=== PATIENT | female | born 1935 | race Caucasian/White ===

== ENCOUNTER 2017-05-28 16:30 | Outpatient (CLI) | payer MEDICARE, BC | END 2017-05-28 16:31 | disposition home or self-care (01) | LOC: BICRAD 16:30 | PROVIDERS: ATTEND Internal Medicine Cardiovascular Disease | DX: R06.02 Shortness of breath (principal); Z95.0 Presence of cardiac pacemaker | CPT/HCPCS: 71046 ==

== ENCOUNTER 2017-12-25 09:22 | Outpatient (CLI) | payer MEDICARE, BC ==
--- NOTE | 2017-12-25 10:28 | RAD ---
TWO VIEWS CHEST: COMPARISON: 05/28/2017. HISTORY: Dyspnea. FINDINGS: Stable left-sided transvenous pacemaker. Normal cardiac silhouette. The pulmonary vessels and hilum are normal. Costophrenic angles are clear. Hyperinflation, without consolidation or mass. No pneu mothorax or osseous abnormalities. IMPRESSION: No acute cardiopulmonary process. POS: [facility]
== END 2017-12-25 09:23 | disposition home or self-care (01) ==
LOC: RAD 09:22
PROVIDERS: ATTEND Internal Medicine Critical Care Medicine
DX: R06.00 Dyspnea, unspecified (principal); I80.10 Phlebitis and thrombophlebitis of unspecified femoral vein; Z79.01 Long term (current) use of anticoagulants
CPT/HCPCS: 71046

== ENCOUNTER 2018-02-19 12:52 | Outpatient (CLI) | payer MEDICARE, BC ==
--- NOTE | 2018-02-19 14:27 | RAD ---
RIGHT KNEE FOUR VIEWS: History: 83-year-old female with history of arthropathy, patellar and medial pain for months. FINDINGS: Arthrosis and degenerative changes are noted of the right knee joint with some narrowing of the media l compartment and generalized hypertrophic osteophytosis with minimal bony demineralization. IMPRESSION: Degenerative changes without fracture or dislocation. Minimal bony demineralization. POS: [facility]
== END 2018-02-19 12:53 | disposition home or self-care (01) ==
LOC: BICRAD 12:52
PROVIDERS: ATTEND Anesthesiology Pain Medicine
DX: M12.9 Arthropathy, unspecified (principal); M17.11 Unilateral primary osteoarthritis, right knee

== ENCOUNTER 2018-05-19 11:38 | Emergency (ER) | payer MEDICARE, BC ==
--- NOTE | 2018-05-19 12:14 | RAD ---
FRadiograph chest one view: 05/19/2018 HISTORY: 83-year-old female with cough. COMPARISON: 12/25/2017 FINDINGS: Cardiomegaly. Dual lead left subclavian pacemaker. No pulmonary venous engorgement or pulmonary edema . Lungs are clear. No pneumothorax. No effacement of lateral costophrenic angles. No interval change. IMPRESSION: 1. Cardiomegaly without congestive heart failure. 2. No evidence of pneumonia. 3. Pacemaker
--- NOTE | 2018-05-19 12:19 | CT ---
FCT brain noncontrast: HISTORY: 83-year-old female status post acute head trauma from fall FINDINGS: There is no evidence of acute intra-axial or extra-axial hemorrhage. No mass effect, midline shift, o r extra-axial fluid collection. No evidence of obstructive hydrocephalus. Calvarium is intact. IMPRESSION: No acute intracranial findings.
--- NOTE | 2018-05-19 12:22 | CT ---
FCT cervical spine noncontrast: Date: 05/19/2018 HISTORY: cervical trauma FINDINGS: Alignment is normal. Vertebral body heights are maintained. No prevertebral soft tissue swelling. No perched or jumped facets. No fracture identified. IMPRESSION: No acute fracture or traumatic subluxation
[2018-05-19 12:31] LABS: Hemoglobin 11.3 g/dL (12.0-16.0); Mean Corpuscular HGB CONC 33.3 g/dL (32.0-36.0); Mean Corpuscular Hemoglobin 31.3 pg (27.0-31.0); Mean Corpuscular Volume 94.2 fL (78.0-98.0); Mean Platelet Volume 7.2 fL (7.4-10.4); Platelet Count 345 thou/uL (130-400); RBC Distribution Width 12.3 % (11.5-14.5); Red Blood Cell (RBC) Count 3.61 mill/uL (4.20-5.40); White Blood Cell (WBC) Count 7.2 thou/uL (4.8-10.8)
[2018-05-19 12:51] LABS: ALT (SGPT) 30 U/L (8-55); AST (SGOT) 30 U/L (5-34); Albumin 3.8 g/dL (3.4-4.8); Alkaline Phosphatase 60 U/L (40-150); Anion Gap 13 mmol/L (10-20); BUN (Urea Nitrogen) 22 mg/dL (9.8-20.1); Bilirubin, Total 0.5 mg/dL (0.2-1.2); Calc. Creatinine Clearance 0 mL/min (70-130); Calcium 9.2 mg/dL (7.8-10.44); Carbon Dioxide 27 mmol/L (23-31); Chloride 99 mmol/L (98-107); Estimated GFR-MDRD 31; Globulin 2.8 g/dL (2.4-3.5); Glucose 87 mg/dL (83-110); Potassium 3.7 mmol/L (3.5-5.1); Protein, Total 6.6 g/dL (6.0-8.3); Sodium 135 mmol/L (136-145)
[2018-05-19 13:03] LABS: Band 4 % (5-11); Eosinophils 3 % (0-10); Hypochromia SLIGHT = 6-15 cells (100X) (0-5/hpf); Lymphocytes 12 % (21-51); MDiff Complete? YES; Monocytes 18 % (0-10); Neutrophil 54 % (42-75); Platelet Morphology Comment Appears Adequate; Reactive Lymphocytes 9 % (0-10)
[2018-05-19 13:09] LABS: Bilirubin Negative (Negative); Blood, Urine Negative (Negative); Clarity CLEAR (Clear); Glucose, Urine (Dipstick) Negative (Negative); Leukocyte Trace (Negative); Nitrite Negative (Negative); Protein, Urine (Dipstick) Negative (Neg-Trace); Specific Gravity, Urine 1.015 (1.002-1.036)
[2018-05-19 13:11] LABS: Bacteria/HPF None Seen HPF (None Seen); Hyaline Casts/LPF 0-3 HYALINE CAST LPF (0-3 Hyaline); Pathc Cast-AUWi Flag 0.81 (0-2.49); RBC/HPF 0-3 HPF (0-3)
[2018-05-19] MEDS ORDERED: Bacitracin Zinc 1 Packet ONE (13:20)
== END 2018-05-19 13:30 | disposition home or self-care (01) ==
LOC: ERS 11:38
DX: S51.012A Laceration without foreign body of left elbow, initial encounter (principal); S00.03XA Contusion of scalp, initial encounter; E78.5 Hyperlipidemia, unspecified; I10 Essential (primary) hypertension; I48.91 Unspecified atrial fibrillation; Z79.899 Other long term (current) drug therapy; W22.01XA Walked into wall, initial encounter
CPT/HCPCS: 36415; 70450; 71045; 72125; 80053; 81003; 81015; 85025

== ENCOUNTER 2018-07-19 13:35 | Outpatient (CLI) | payer MEDICARE, BC ==
--- NOTE | 2018-07-19 15:19 | CT ---
CT Lumbar Spine WO Con History: [Lumbar stenosis with neurogenic claudication] Comparison: None. Findings: Moderate levoscoliosis of the lumbar spine. Modic type III endplate change at L3/L4 and L4/ L5. The aortic contour is nonaneurysmal. No retroperitoneal periaortic adenopathy. Nondisplaced sagittall y oriented fracture left lamina of L5. Hypodensity superior pole left kidney incompletely evaluated. Levels are as follows: L1/L2: Advanced degenerative disc space height loss. Moderate facet arthrosis. Broad-based posterior disc osteophyte complex. Moderate bilateral neural foraminal narrowing. Spinal canal measures approximately 8 mm. L2/L3: Severe degenerative disc space height loss. Moderate facet arthropathy. Circumferential disc o steophyte complex. Moderate to severe right and left neural foraminal narrowing. Mild ligamentum flavum hypertrophy. Spinal canal measures approximately 8 mm. L3/L4: Circumferential disc bulge with left-sided disc osteophyte complex. Severe facet arthrosis on the right and moderate on the left. Severe right and moderate left neural foraminal narrowing. Ligamentum flavum hypertrophy. Spinal canal measures approximately 5 mm. L4/L5: Circumferential disc osteophyte complex. Severe bilateral facet arthrosis. Severe left and rig ht neural foraminal narrowing. L5/S1: Mild degenerative posterior disc space height loss. Mild right and moderate to severe left fac et arthropathy. Severe left and moderate right neural foraminal narrowing. Impression: 1. Multilevel moderate to severe degenerative disease as described with levoscoliosis of the lumbar s pine approximately 22 degrees. 2. Stress type fracture of the left lamina of L5, nondisplaced.
== END 2018-07-19 13:36 | disposition home or self-care (01) ==
LOC: BICCT 13:35
PROVIDERS: ATTEND Anesthesiology Pain Medicine
DX: M48.062 Spinal stenosis, lumbar region with neurogenic claudication (principal); M47.816 Spondylosis without myelopathy or radiculopathy, lumbar region; M48.46XA Fatigue fracture of vertebra, lumbar region, initial encounter for fracture; M41.9 Scoliosis, unspecified
CPT/HCPCS: 72131

== ENCOUNTER 2018-09-13 09:25 | Emergency (ER) | payer MEDICARE, BC ==
--- NOTE | 2018-09-13 10:46 | RAD ---
3 views of the left foot: 09/13/2018 COMPARISON: None HISTORY: Injury, laceration, bleeding FINDINGS: There is mild degenerative change at the first metatarsal phalangeal joint. No displaced fr acture or evidence of dislocation is seen. There is focal dorsal soft tissue swelling overlying the forefoot on the lateral examination. There is degenerative change within the mid foot. Calcaneal spur ring noted at the origin of the plantar aponeurosis and insertion of the Achilles tendon. IMPRESSION: Focal dorsal soft tissue swelling with no associated fracture/dislocation or radiopaque f oreign body.
== END 2018-09-13 11:12 | disposition home or self-care (01) ==
LOC: ERS 09:25
DX: S91.302A Unspecified open wound, left foot, initial encounter (principal); I48.91 Unspecified atrial fibrillation; E78.5 Hyperlipidemia, unspecified; I10 Essential (primary) hypertension; I49.9 Cardiac arrhythmia, unspecified; Z79.899 Other long term (current) drug therapy; Z79.01 Long term (current) use of anticoagulants; W26.0XXA Contact with knife, initial encounter

== ENCOUNTER 2018-11-01 09:54 | Outpatient (CLI) | payer MEDICARE, BC ==
--- NOTE | 2018-11-01 10:44 | MMO ---
Bilateral MAMMO Bilat Screen [facility]. CLINICAL HISTORY: Patient is 83 years old and is seen for screening. The patient has the following family history of breast cancer: maternal aunt. The patient has no personal history of cancer. VIEWS: The views performed were: bilateral craniocaudal with tomosynthesis; bilateral mediolateral oblique with tomosynthesis; and left mediolateral oblique. FILMS COMPARED: The present examination has been compared to prior imaging studies performed at [facility] on 07/07/2014, 07/26/2015, 08/17/2016 and 09/12/2017. This study has been interpreted with the assistance of computer-aided detection. MAMMOGRAM FINDINGS: There are scattered fibroglandular densities. There are vascular calcifications seen in both breasts. There are no suspicious masses, suspicious calcifications, or new areas of architectural distortion. IMPRESSION: THERE IS NO MAMMOGRAPHIC EVIDENCE OF MALIGNANCY. A ROUTINE FOLLOW-UP MAMMOGRAM IN 1 YEAR IS RECOMMENDED. THE RESULTS OF THIS EXAM WERE SENT TO THE PATIENT. ACR BI-RADS Category 2 - Benign finding MAMMOGRAPHY NOTE: 1. A negative mammogram report should not delay a biopsy if a dominant of clinically suspicious mass is present. 2. Approximately 10% to 15% of breast cancers are not detected by mammography. 3. Adenosis and dense breasts may obscure an underlying neoplasm. Reported by: PREETI DICKEY MD Electonically Signed: [id number]
== END 2018-11-01 09:55 | disposition home or self-care (01) ==
LOC: BICMAMMO 09:54
PROVIDERS: ATTEND Internal Medicine
DX: Z12.31 Encounter for screening mammogram for malignant neoplasm of breast (principal); Z80.3 Family history of malignant neoplasm of breast
CPT/HCPCS: 77063; 77067

== ENCOUNTER 2018-11-20 20:24 | Emergency (ER) | payer MEDICARE, BC ==
[2018-11-20] MEDS ORDERED: Adacel (T-DAP) 0.5 ML SYRINGE ONE (21:29)
== END 2018-11-20 21:58 | disposition home or self-care (01) ==
LOC: ERS 20:24
DX: S81.812A Laceration without foreign body, left lower leg, initial encounter (principal); L03.116 Cellulitis of left lower limb; E78.5 Hyperlipidemia, unspecified; I10 Essential (primary) hypertension; I48.91 Unspecified atrial fibrillation; W45.8XXA Other foreign body or object entering through skin, initial encounter
CPT/HCPCS: 90471; 90715

== ENCOUNTER 2018-12-15 15:09 | Inpatient (IN) | payer MEDICARE, BC ==
[2018-12-15 15:47] LABS: #Basophils 0.1 thou/uL (0.0-0.2); #Eosinphils 0.1 thou/uL (0.0-0.7); #Lymphocytes 1.3 thou/uL (1.20-3.40); #Monocytes 1.3 thou/uL (0.11-0.59); #Neutrophils 6.3 thou/uL (1.40-6.50); %Basophils 0.7 % (0.0-1.0); %Eosinophils 0.8 % (0.0-10.0); %Lymphocytes 13.9 % (21.0-51.0); %Monocytes 14.5 % (0.0-10.0); %Neutrophils 70.1 % (42.0-75.0); Hemoglobin 10.3 g/dL (12.0-16.0); Mean Corpuscular HGB CONC 33.9 g/dL (32.0-36.0); Mean Corpuscular Hemoglobin 31.8 pg (27.0-31.0); Mean Corpuscular Volume 93.9 fL (78.0-98.0); Mean Platelet Volume 6.9 fL (7.4-10.4); Platelet Count 313 thou/uL (130-400); RBC Distribution Width 12.9 % (11.5-14.5); Red Blood Cell (RBC) Count 3.24 mill/uL (4.20-5.40)
[2018-12-15] MEDS ORDERED: diphenhydrAMINE 50 MG/ML VIAL ONE ×2 (15:52→16:04)
[2018-12-15 15:58] LABS: Bilirubin Negative (Negative); Blood, Urine Negative (Negative); Clarity Clear (Clear); Glucose, Urine (Dipstick) Normal (Negative); Leukocyte Negative Leu/uL (Negative); Nitrite Negative (Negative); Protein, Urine (Dipstick) 10 mg/dL (Neg-Trace)
[2018-12-15] MEDS ORDERED: Famotidine/PF 20 mg/2ml Vial ONE (16:04)
[2018-12-15] MEDS ORDERED: methylPREDNISolone Sod Succ/PF 125 MG/2 ML VIAL ONE (16:04)
[2018-12-15 16:09] LABS: Amphetamine Not Detected (NotDetected); Barbiturates Screen Not Detected (NotDetected); Benzodiazepine Screen Not Detected (NotDetected); Cocaine Metabolite Screen Not Detected (NotDetected); Medtox Control Line Valid? VALID (VALID); Medtox Reader # READER 4; Methadone Not Detected (NotDetected); Methamphetamine Not Detected (NotDetected); Opiate Screen Detected (NotDetected); Oxycodone Screen Not Detected (NotDetected); Phencyclidine (PCP) Not Detected (NotDetected); THC/Cannabinoid Screen Not Detected (NotDetected); Tricyclic Screen Not Detected (NotDetected)
[2018-12-15] MEDS ORDERED: Lorazepam 2 MG/ML VIAL ONE ×2 (16:14→16:31)
[2018-12-15 16:21] LABS: ALT (SGPT) 67 U/L (8-55); AST (SGOT) 54 U/L (5-34); Albumin 3.8 g/dL (3.4-4.8); Alkaline Phosphatase 69 U/L (40-110); Anion Gap 14 mmol/L (10-20); BUN (Urea Nitrogen) 33 mg/dL (9.8-20.1); Bilirubin, Total 0.6 mg/dL (0.2-1.2); Calc. Creatinine Clearance 0 mL/min (70-130); Calcium 9.1 mg/dL (7.8-10.44); Carbon Dioxide 23 mmol/L (23-31); Chloride 102 mmol/L (98-107); Estimated GFR-MDRD 27; Globulin 2.6 g/dL (2.4-3.5); Glucose 105 mg/dL (83-110); Potassium 4.1 mmol/L (3.5-5.1); Protein, Total 6.4 g/dL (6.0-8.3); Sodium 135 mmol/L (136-145)
--- NOTE | 2018-12-15 17:05 | RAD ---
PORTABLE CHEST: HISTORY: Altered mental status. COMPARISON: 05/19/2018 FINDINGS: Heart size is enlarged with a pacemaker. The lungs are clear of infiltrates. No signs of failure. IMPRESSION: Cardiomegaly. Stable chest. POS: [facility]
[2018-12-15] MEDS ORDERED: Haloperidol Lactate 5 MG/ML VIAL ONE ×2 (17:14→17:15)
--- NOTE | 2018-12-15 17:15 | CT ---
CT BRAIN WITHOUT CONTRAST ENHANCEMENT: HISTORY: Altered mental status. COMPARISON: 05/19/2018 FINDINGS: There is mild ventricular and sulcal prominence. There is some motion artifact present. There are no signs of intracranial hemorrhage or extraaxial fluid collections. The mastoid air cells are clear. Findings of acute sinusitis with air-fluid levels in both maxillary sinuses. IMPRESSION: 1. No acute intracranial abnormalities. 2. Acute bilateral maxillary sinusitis changes. POS: [facility]
[2018-12-15 17:37] LABS: Acetaminophen Less than 6.0 mcg/mL (10.0-30.0); Alcohol Less than 10 mg/dL (Less than 10); Salicylate Less than 8.0 mg/dL (15.0-30.0)
[2018-12-15 17:57] LABS: CKMB 6.4 ng/mL (0-6.6)
[2018-12-15 20:06] LABS: Troponin I 0.041 ng/mL (< 0.028)
[2018-12-15] MEDS ORDERED: Ondansetron ODT 4 MG TAB SL PRN (21:14)
[2018-12-15] MEDS ORDERED: Acetaminophen 325 MG TAB PO PRN (21:14)
[2018-12-15] MEDS ORDERED: Ondansetron PF 4 MG/2 ML Vial IVP PRN (21:14)
[2018-12-15 21:56] LABS: Actual Bicarbonate (HCO3a) 22.9 mEq/L (22-28); Analyzer IN Cardio OR; Base Excess (BEa) -1.7 mEq/L (-2.0 to +3.0); Calcium, Ionized 1.15 mmol/L (1.12-1.30); Hemoglobin (Hb) 10.8 g/dL (12.0-16.0); O2 Tension (PaO2) 214.9 mmHg (> 60.0); Potassium - ABG Lab 3.88 mmol/L (3.70-5.30)
[2018-12-15 22:00] LABS: Puncture Site R RADIAL
[2018-12-15] MEDS ORDERED: Lorazepam 2 MG/ML VIAL SLOW IVP SCH (22:00)
[2018-12-15] MEDS ORDERED: Lorazepam 2 MG/ML VIAL SLOW IVP PRN (22:24)
[2018-12-15] MEDS ORDERED: Haloperidol Lactate 5 MG/ML VIAL SLOW IVP PRN (22:24)
[2018-12-15 22:46] LABS: INR-International Normal Ratio 1.2; PTT 31.4 SEC (22.9-36.1); Prothrombin Time 15.6 SEC (12.0-14.7)
[2018-12-15 22:57] LABS: CKMB 5.5 ng/mL (0-6.6); Troponin I 0.025 ng/mL (< 0.028)
[2018-12-16 00:58] VITALS: BMI 26.4
--- NOTE | 2018-12-16 07:42 | HP ---
CHIEF COMPLAINT: Altered mental status. HISTORY OF PRESENT ILLNESS: This patient is an 83-year-old female brought by her family. The patient apparently has recently been having some falling. She thought maybe it was related to her Ambien when it came to her most recent fall. Apparently, she had taken it and then went and sat in a chair for a while rather than going to bed. She discontinued it and then apparently tried to substitute that with other things like melatonin and Benadryl. She subsequently has become increasingly confused and having hallucinations over the last 4 days, that was initially starting on . She was not sleeping well. She presented to Dr. North' office where she had UA and a CT of the head, which were unremarkable. The patient has continued to progress to the point that today her speech became completely garbled and unintelligible. Family reports that she has been biting her tongue and cheek somewhat and that maybe was affecting her speech. They also reports that she has, during this time, been developing some jerking in her extremities and at times, jerking to the point where she tends to jerk herself backwards somewhat. They report that she has been feeling some sensation of falling backwards for a while. The patient also had opioids in her system. In the emergency department, the family reports that starting on Sunday, they had stopped. They had taken her medications and were trying to control them and they are unaware of her having any other source of opioids. Family reports that a month ago, before this started that she was completely cognitive and appropriate in fact as recently as Sunday, she was up and mopping her floors. She did have a fall on Sunday as well. REVIEW OF SYSTEMS: She has been eating and drinking well throughout all of this. She did indicate one of her daughters that she has had some decreased urine output. However, the patient has been sedated in the emergency department and is not capable of giving additional history. PAST MEDICAL HISTORY: Atrial fibrillation, sick sinus rhythm, hyperlipidemia, hypertension, anxiety, and depression. PAST SURGICAL HISTORY: Pacemaker, appendectomy, hip replacement, and knee replacement. FAMILY HISTORY: Brother had lung cancer. Mother at 93, had hypertension. SOCIAL HISTORY: She is a nonsmoker and nondrinker. She is . She has two daughters present. She is full code and they are speaking on her behalf presently. CURRENT MEDICATIONS: 1. Bupropion 150 mg daily. 2. Diltiazem 180 mg daily. 3. Eliquis 5 mg b.i.d. 4. Gabapentin 300 mg b.i.d. 5. Myrbetriq 50 mg one p.o. daily. 6. Pantoprazole 40 mg daily. 7. Folic acid one p.o. daily. 8. Calcium with vitamin D 200-200 one p.o. daily. 9. Iron 65 mg daily. 10. Potassium 20 mEq daily. 11. Amiodarone 200 mg at bedtime. 12. Clonidine 0.1 mg daily. 13. Duloxetine 60 mg daily and 30 mg at bedtime. 14. Losartan 100 mg daily. 15. Metoprolol 50 mg daily. 16. Simvastatin 20 mg at bedtime. ALLERGIES: CODEINE AND IODINE. PHYSICAL EXAMINATION: VITAL SIGNS: Blood pressure 150/61, pulse 62, respirations 19, temperature 97.9 , and O2 saturations 94% on room air. GENERAL APPEARANCE: The patient is sedated, sleeping soundly. She is in no distress. HEENT: FLACA. She has no OP lesions. There is no evidence of significant cheek biting or tongue biting by my examination. HEART: Regular without murmur without significant murmurs. LUNGS: Clear bilaterally with no wheezes or rales. ABDOMEN: Nondistended with positive bowel sounds. No masses. EXTREMITIES: No edema. She does have multiple areas of ecchymoses including her hips and knees from apparent falls. LABORATORY DATA: White count 9.0, hemoglobin 10.3, and platelets 313. Sodium is 135, potassium 4.1, chloride 102, CO2 is 23, BUN 13, creatinine is 1.8, glucose 105, calcium 9.1, AST 54, and ALT 67. Troponin 0.037, subsequent 0.041. Urinalysis negative. Drug screen positive for opiates. Alcohol negative. Chest x-ray, cardiomegaly with no acute findings. Brain CT, no acute intracranial abnormalities. There are acute bilateral maxillary sinusitis changes. EKG shows paced rhythm. ED course. Patient required steroids and benadryl for her iodine contrast. She became more animated and agitated after receiving these. She required Lorazepam and Haldol. She did finally settle down and was sleeping. A/P 1) Acute encephalopathy. Unclear etiology. Suspect may be related to meds. ? Glenn W/D, v. paradoxical reaction to benadryl, v. serotonin syndrome. Hx of anxiety and depression. Has not had any significant changes in her meds recently. MRI, Neuro consult. Hold meds as possible. PRN's as needed. 2) Afib - stable, paced rhythm. On anticoagulation. Rate controlled on beta shyanne. 3) Falls - several recent falls. Unclear how that is related to the current acute process. Several bruises on extremities from falling. 4) HLD - continue statin. 5) DVT prophylaxed as she is on Eliquis. Raymon Laurent was called shortly after the patient was admitted. She had awakened and was agitated again. She was given an additional dose of Ativan and moved to the [facility] for better observation. Appeared to settle down once left alone. Job ID: [id number] MTDD
--- NOTE | 2018-12-16 09:50 | PDOC.HOSPP ---
- Subjective Encounter Date: 12/16/18 Encounter Time: 09:48 Subjective: Doing amazingly better. She is awake and denies any problems. Denies pain. - Objective Vital Signs & Weight: Vital Signs (12 hours) Temp Temp Pulse Resp BP Pulse Ox 12/16/18 07:15 98.1 F 12/16/18 04:00 97.3 F L 12/15/18 22:10 98.2 F 12/15/18 21:48 98.4 F 63 32 H 110/55 L 77 L Weight Weight 164 lb Most Recent Monitor Data Heart Rate from ECG 68 NIBP 141/79 NIBP BP-Mean 99 Respiration from ECG 17 SpO2 92 I&O: 12/15/18 12/16/18 12/17/18 06:59 06:59 06:59 Intake Total 0 Balance 0 Result Diagrams: 12/15/18 15:37 12/15/18 15:37 Additional Labs: Accuchecks 12/15/18 21:42 POC Glucose 170 H - Exam General Appearance: NAD, awake alert Heart: RRR, no murmur, no gallops, no rubs, normal peripheral pulses Respiratory: CTAB, no wheezes, no rales, no ronchi, normal chest expansion, no tachypnea, normal percussion Gastrointestinal: soft, non-tender, non-distended, normal bowel sounds, no palpable masses, no hepatomegaly, no splenomegaly, no bruit Extremities: no cyanosis, no clubbing, no edema Musculoskeletal: normal tone, normal strength, no muscle wasting Psychiatric: normal affect, normal behavior, A&O x 3 Hosp A/P (1) Acute encephalopathy Code(s): G93.40 - ENCEPHALOPATHY, UNSPECIFIED Status: Acute (2) Afib Code(s): I48.91 - UNSPECIFIED ATRIAL FIBRILLATION Status: Acute (3) HTN (hypertension) Code(s): I10 - ESSENTIAL (PRIMARY) HYPERTENSION Status: Chronic Qualifiers: Hypertension type: essential hypertension Qualified Code(s): I10 - Essential (primary) hypertension (4) Polypharmacy Code(s): Z79.899 - OTHER SCRAP HANDLER (CURRENT) DRUG THERAPY Status: Chronic (5) Falls Code(s): W19.XXXA - UNSPECIFIED FALL, INITIAL ENCOUNTER Status: Acute (6) Tremor Code(s): R25.1 - TREMOR, UNSPECIFIED Status: Acute - Plan Remarkably better. Fully oriented and appears to be back to baseline. Suspect the sleep overnight helped a great deal. PT consult. MRI. Follow up cultures. Neuro consult.
[2018-12-16] MEDS ORDERED: Apixaban 5 MG TAB PO SCH (10:30)
[2018-12-16] MEDS ORDERED: Bupropion 150 MG XL TAB PO SCH (10:30)
[2018-12-16] MEDS ORDERED: Calcium Citrate 950 MG TAB PO SCH (12:00)
--- NOTE | 2018-12-16 15:32 | ULT ---
Exam: Bilateral renal ultrasound complete: HISTORY: Acute kidney injury on chronic kidney disease COMPARISON: CT angiogram abdomen 04/24/2014 FINDINGS: Right kidney: 10.7 x 4.7 x 4.3 cm Left kidney: 7.9 x 4.5 x 3.1 cm No renal hydronephrosis. No evidence for abnormal perinephric process. Approximately 1 cm diameter left renal cyst. Unremarkable appearing bladder. Exam was somewhat limited because of bowel. IMPRESSION: No renal hydronephrosis. Small left renal cyst.
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
[2018-12-16] MEDS: Amiodarone 200 MG TAB PO SCH (21:23)
[2018-12-16] MEDS: Apixaban 5 MG TAB PO SCH (21:24)
[2018-12-16] MEDS: Atorvastatin Calcium 10 MG TAB PO SCH (21:24)
[2018-12-16] MEDS: Losartan 25 MG TAB PO SCH (21:24)
--- NOTE | 2018-12-16 21:24 | CON ---
DATE OF TELEMEDICINE CONSULTATION: 12/16/2018 CHIEF COMPLAINT: Altered mental status. HISTORY OF PRESENT ILLNESS: The patient is an 83-year-old lady, who was brought in by her daughter for complaints of altered mental status and confusion. She has had these episodes, where her head went back and body was stiff and she started describing that she was seeing people on a cruise ship and she was frightened that there were children around her, who are not her grandchildren. She has recognized these hallucinations about 10 days ago and called her daughter, gave her all of her Ambien, and told her to take that medication away from her, so she does not forget and take it. She has also experienced some difficulties with speech last night, when she received Ativan, Geodon, Benadryl, and Decadron, all connected to her CT scan. The patient has been off Ambien for 10 days. At baseline, she is forgetful and overall primary issue right now is the confusion and hallucinations, which have not resolved. The patient takes pain medications and Ambien at home. She felt funny and the collar alert did not go off. She also fell out of bed and this happened 10 days ago. The patient has long-standing anxiety and depression. There has been trauma in the family. She lost four of her grandchildren. The patient has chronic pain due to arthritis and back and shoulder pain. She is on Wellbutrin given by her primary care doctor. PREVIOUS MEDICAL HISTORY: The patient has cardiac arrhythmia with atrial fibrillation; hyperlipidemia, which is mild per daughter; hypertension; and neuropathy. SURGICAL HISTORY: Pacemaker implantation, knee replacement, hip replacement, and appendectomy. FAMILY HISTORY: Her parents . Mother at 93 from arthritis and coronary artery disease. Father of a thoracic aortic aneurysm. Brother from cancer at 76. The patient has one sister, who is 80. She has had back surgeries, chronic kidney disease, steroids for pain and arthritis and fibromyalgia. MEDICATIONS AT HOME: List of medicine reviewed. ALLERGIES: SHE IS ALLERGIC TO CODEINE AND IODINE. SOCIAL HISTORY: No alcohol. No drug use. No smoking. She is , lives alone. Daughter is very helpful. REVIEW OF SYSTEMS: Not reliable due to mental status. LABORATORY AND DIAGNOSTIC DATA: White count 9, hemoglobin 10.3, hematocrit 30.5 , and platelet count 313. PT 15.6, INR 1.2, and PTT 31.4. Chemistry; sodium 135, potassium 4.1, chloride 102, bicarb 23, anion gap 14, BUN 33, creatinine 1.80, GFR 27, and glucose 105. AST 54, ALT 67, CPK 403. Glucose 170 on the second repeat testing. Urinalysis is negative and her MRI Brain is pending. CT of the brain did not show any intracranial hemorrhage, and she has mild chronic white matter changes. PHYSICAL EXAMINATION: VITAL SIGNS: Blood pressure 157/88, heart rate 64, and temperature 98.9. GENERAL APPEARANCE: Well-built, well-nourished lady, who is comfortable in bed and she was asleep earlier but now fully awake at the time of our evaluation this evening, and she has subcutaneous collection of blood around the right eye. Daughter thinks it happened because she was rubbing her eye. CHEST: Clear vesicular breathing. CARDIOVASCULAR: S1 and S2 heard. Paced rhythm. ABDOMEN: Soft. NEUROLOGICAL: Higher intellectual functions. Oriented to place, person, and year. Not oriented to exact date. Cranial nerves; normal extraocular movements. Tongue midline. No atrophy noted. Normal elevation of palate. No facial asymmetry noted. Normal sensation of face bilaterally, and hearing was intact. Pupils are 2 mm, reactive to light. Motor examination; bulk normal. Tone normal. Strength 5/5 in upper and lower extremities bilaterally. Muscle groups tested are deltoid, biceps, triceps, wrist extension and flexion, finger extension and flexion bilaterally. Sensory normal to touch bilaterally. Deep tendon reflexes 2+ throughout and her cerebellar exam; normal [id number]. Involuntary movements; she had action tremor bilaterally in both upper and lower extremities with a myoclonic quality to the tremor. IMPRESSION: The patient with confusion and hallucinations in the background of pre-existing mild dementia, undiagnosed clinically. She has multiple medical issues as well, and she is currently in mild renal impairment. She has been off Ambien for 10 days and she has chronic pain. Her neurological examination shows some improvement compared to prior earlier today per daughter and she is able to answer questions and follow commands. At this time, I do not think she is having any acute seizures clinically. I do think she has delirium likely secondary to multifactorial metabolic issues. TREATMENT RECOMMENDATIONS: I will go ahead and start her on quetiapine 50 mg at night. The patient also is on polypharmacy. She might be sleep deprived. These issues need to be resolved. Dr. Hope will take over from tomorrow. Job ID: [id number] [facility]
[2018-12-17 04:18] LABS: Anion Gap 12 mmol/L (10-20); BUN (Urea Nitrogen) 30 mg/dL (9.8-20.1); Calc. Creatinine Clearance 36 mL/min (70-130); Calcium 8.8 mg/dL (7.8-10.44); Carbon Dioxide 27 mmol/L (23-31); Chloride 103 mmol/L (98-107); Estimated GFR-MDRD 36; Glucose 124 mg/dL (83-110); Magnesium 2.2 mg/dL (1.6-2.6); Potassium 3.6 mmol/L (3.5-5.1); Sodium 138 mmol/L (136-145)
[2018-12-17 04:19] LABS: ALT (SGPT) 51 U/L (8-55); AST (SGOT) 32 U/L (5-34); Albumin 3.5 g/dL (3.4-4.8); Alkaline Phosphatase 59 U/L (40-110); Bilirubin, Direct 0.2 mg/dL (0.1-0.3); Bilirubin, Total 0.4 mg/dL (0.2-1.2); Protein, Total 5.9 g/dL (6.0-8.3)
[2018-12-17 04:29] LABS: CK (CPK) 91 U/L (29-168); Phosphorus 2.8 mg/dL (2.3-4.7)
[2018-12-17] MEDS: Apixaban 5 MG TAB PO SCH ×2 (09:08→21:21)
[2018-12-17] MEDS: Bupropion 150 MG XL TAB PO SCH (09:08)
--- NOTE | 2018-12-17 16:22 | PRG ---
DATE OF SERVICE: 12/17/2018 SERVICE: Pulmonary Medicine. INTERVAL HISTORY: The patient is doing great from mentation standpoint. She had an episode of some night terrors last night, but otherwise, she has been cool, calm, and collected. She is much more awake and alert this morning. She has no shortness of breath, chest discomfort. Otherwise, she is slowly returning to her usual state of health. PHYSICAL EXAMINATION: VITAL SIGNS: Afebrile. Pulse 60, blood pressure 139/76, respirations 15, and saturation 93% on room air. GENERAL: The patient is awake and alert, in no apparent distress. LUNGS: Very good air entry with no prolonged expiratory phase or wheezing present. HEART: Normal rate and regular. ABDOMEN: Soft. Nontender. Nondistended. Bowel sounds are positive. MUSCULOSKELETAL: No cyanosis or clubbing. No pitting in the bilateral lower extremities. NEUROLOGIC: Grossly nonfocal. LABORATORY DATA: Creatinine downtrending to 1.41. Basic metabolic profile is otherwise unremarkable. Magnesium and phosphorous fall within normal limits. CK is clear to 91. Liver function studies are completely unremarkable today with an AST, ALT, ammonia level, they are trending back into the normal range. Urine drug screen is unremarkable except for some opiates. Blood cultures x2 are unremarkable. IMAGING: Renal ultrasound demonstrates no evidence of hydronephrosis or obstructive uropathy. ASSESSMENT: 1. Sinusitis without signs of sepsis. 2. Metabolic encephalopathy, possible. 3. Delirium versus acute psychosis. 4. Acute kidney injury, resolving to baseline. 5. Elevated CK, resolved. DISCUSSION AND PLAN: At this point, she is stable for transition out of the ICU to the medical unit. When she lands on the floor, she has no further requirements for inpatient pulmonary critical care opinion, and I will sign off. Ultimately, I do think it would be reasonable to screen for dementia in the outpatient setting when she returns to her usual state of health. We will involve Physical Therapy to make certain she gets out of bed during the daytime. Job ID: [id number]
[2018-12-17] MEDS: Amiodarone 200 MG TAB PO SCH (21:21)
[2018-12-17] MEDS: Atorvastatin Calcium 10 MG TAB PO SCH (21:21)
[2018-12-17] MEDS: Amoxicillin/Potassium Clav 875 MG TAB PO SCH (21:24)
[2018-12-17] MEDS: Losartan 25 MG TAB PO SCH (21:28)
--- NOTE | 2018-12-17 22:27 | PDOC.HOSPP ---
- Subjective Subjective: Still doing well. Had a single episode of awaking last night with a little brief confusion. - Objective Vital Signs & Weight: Vital Signs (12 hours) Temp Pulse Pulse Pulse Resp BP BP 12/17/18 20:00 99.8 F H 70 12 12/17/18 17:34 12/17/18 16:00 98.0 F 12/17/18 13:19 62 67 152/76 H 135/67 12/17/18 11:24 97.8 F Pulse Ox Pulse Ox Pulse Ox 12/17/18 20:00 95 12/17/18 17:34 99 12/17/18 16:00 12/17/18 13:19 94 L 93 L 12/17/18 11:24 Weight Weight 164 lb Most Recent Monitor Data Heart Rate from ECG 60 NIBP 144/66 NIBP BP-Mean 92 Respiration from ECG 18 SpO2 94 I&O: 12/16/18 12/17/18 12/18/18 06:59 06:59 06:59 Intake Total 0 800 Output Total 450 Balance 0 350 Result Diagrams: 12/15/18 15:37 12/17/18 03:48 Hospitalist ROS - Medication Medications: Active Medications Generic Name Dose Route Start Last Admin Trade Name Freq PRN Reason Stop Dose Admin Amiodarone HCl 200 mg 12/16/18 21:00 12/17/18 21:21 Cordarone PO 200 mg QPM BRUNILDA Administration Amoxicillin/Clavulanate Potassium 875 mg 12/17/18 21:00 12/17/18 21:24 Augmentin PO 12/22/18 21:01 875 mg Q12HR BRUNILDA Administration Apixaban 5 mg 12/16/18 21:00 12/17/18 21:21 Eliquis PO 5 mg BID BRUNILDA Administration Atorvastatin Calcium 10 mg 12/16/18 21:00 12/17/18 21:21 Lipitor PO 10 mg HS BRUNILDA Administration Bupropion HCl 150 mg 12/17/18 09:00 12/17/18 09:08 Wellbutrin Xl PO 150 mg QAM BRUNILDA Administration Diltiazem HCl 180 mg 12/17/18 09:00 12/17/18 09:08 Cardizem Cd PO 180 mg QAM BRUNILDA Administration Losartan Potassium 100 mg 12/16/18 21:00 12/17/18 21:28 Cozaar PO 100 mg QPM BRUNILDA Administration Metoprolol Succinate 50 mg 12/16/18 21:00 12/17/18 21:23 Toprol Xl PO 50 mg QPM BRUNILDA Administration Mirabegron 50 mg 12/17/18 09:00 12/17/18 09:16 Myrbetriq Er PO 50 mg QAM BRUNILDA Administration Pantoprazole Sodium 40 mg 12/17/18 09:00 12/17/18 09:08 Protonix PO 40 mg QAM BRUNILDA Administration Quetiapine Fumarate 50 mg 12/16/18 21:00 12/17/18 21:21 Seroquel PO 50 mg HS BRUNILDA Administration - Exam General Appearance: NAD, awake alert Heart: RRR, no murmur, no gallops, no rubs, normal peripheral pulses Respiratory: CTAB, no wheezes, no rales, no ronchi, normal chest expansion, no tachypnea, normal percussion Gastrointestinal: soft, non-tender, non-distended, normal bowel sounds, no palpable masses, no hepatomegaly, no splenomegaly, no bruit Extremities: no cyanosis, no clubbing, no edema Extremities - other findings: Scattered ecchymoses over LE joints. Skin: normal turgor Neurological - other findings: Still a little shaky with some gen twitching. Musculoskeletal: normal tone, generalized weakness Psychiatric: normal affect, normal behavior Hosp A/P (1) Acute encephalopathy Code(s): G93.40 - ENCEPHALOPATHY, UNSPECIFIED Status: Acute (2) Afib Code(s): I48.91 - UNSPECIFIED ATRIAL FIBRILLATION Status: Acute (3) HTN (hypertension) Code(s): I10 - ESSENTIAL (PRIMARY) HYPERTENSION Status: Chronic Qualifiers: Hypertension type: essential hypertension Qualified Code(s): I10 - Essential (primary) hypertension (4) Polypharmacy Code(s): Z79.899 - OTHER ASSOCIATE CURATOR (CURRENT) DRUG THERAPY Status: Chronic (5) Falls Code(s): W19.XXXA - UNSPECIFIED FALL, INITIAL ENCOUNTER Status: Acute (6) Tremor Code(s): R25.1 - TREMOR, UNSPECIFIED Status: Acute - Plan Fully oriented and appears to be back to baseline. PT consult. MRI still pending. Cultures negative. Rehab eval. Staying off the Duloxetine. Concerned this may have been serotonin syndrome. Could have been ambien W/D. Sleep deprivation definitely contributed.
[2018-12-18] MEDS: Amoxicillin/Potassium Clav 875 MG TAB PO SCH ×2 (09:23→20:21)
[2018-12-18] MEDS: Bupropion 150 MG XL TAB PO SCH (09:23)
[2018-12-18] MEDS: Apixaban 5 MG TAB PO SCH ×2 (09:23→20:21)
--- NOTE | 2018-12-18 12:41 | PRG ---
DATE OF SERVICE: 12/18/2018 SERVICE: Pulmonary Medicine. INTERVAL HISTORY: The patient is doing outstanding from respiratory standpoint. With physical therapy, she was able to ambulate the hallways. Mentation siegel, family indicates she is back to baseline. Otherwise, there has been no interval change to her condition. PHYSICAL EXAMINATION: VITAL SIGNS: Afebrile, pulse 60, blood pressure 138/87, respirations 18, saturation 96% on room air. GENERAL: The patient is awake and alert, in no apparent distress. LUNGS: Very good air entry. No prolonged expiratory phase, wheezing, rhonchi, or crackles are present. HEART: Normal rate, regular. ABDOMEN: Soft, nontender, nondistended. Bowel sounds are positive. MUSCULOSKELETAL: No cyanosis or clubbing. No pitting in the bilateral lower extremities. NEUROLOGIC: Grossly nonfocal. ASSESSMENT: 1. Sinusitis without signs of sepsis. 2. Delirium. 3. Acute kidney injury, resolved to baseline. DISCUSSION AND PLAN: The patient is doing fine from mentation standpoint. At this point, she is stable for transition out of the hospital, or to the floor. Either way, when she leaves the [facility], she will have no further requirements for inpatient Pulmonary Critical Care opinion, and I will sign off. Apparently, the patient's family is expectantly waiting the MRI pictures, and results. Job ID: [id number]
--- NOTE | 2018-12-18 14:47 | PDOC.HOSPP ---
- Subjective Subjective: Feels good today. No complaints. - Objective Vital Signs & Weight: Vital Signs (12 hours) Temp Pulse Pulse Pulse Resp BP BP 12/18/18 11:34 98.7 F 12/18/18 10:38 79 78 138/78 139/79 12/18/18 07:12 97.9 F 60 18 12/18/18 04:00 99.2 F 12 Pulse Ox Pulse Ox Pulse Ox 12/18/18 11:34 12/18/18 10:38 97 97 12/18/18 07:12 96 12/18/18 04:00 96 Weight Weight 164 lb Most Recent Monitor Data Heart Rate from ECG 60 NIBP 138/87 NIBP BP-Mean 104 Respiration from ECG 18 SpO2 94 I&O: 12/17/18 12/18/18 12/19/18 06:59 06:59 06:59 Intake Total 800 580 Output Total 450 Balance 350 580 Result Diagrams: 12/15/18 15:37 12/17/18 03:48 Hospitalist ROS - Medication Medications: Active Medications Generic Name Dose Route Start Last Admin Trade Name Alexandreq PRN Reason Stop Dose Admin Amiodarone HCl 200 mg 12/16/18 21:00 12/17/18 21:21 Cordarone PO 200 mg QPM BRUNILDA Administration Amoxicillin/Clavulanate Potassium 875 mg 12/17/18 21:00 12/18/18 09:23 Augmentin PO 12/22/18 21:01 875 mg Q12HR BRUNILDA Administration Apixaban 5 mg 12/16/18 21:00 12/18/18 09:23 Eliquis PO 5 mg BID BRUNILDA Administration Atorvastatin Calcium 10 mg 12/16/18 21:00 12/17/18 21:21 Lipitor PO 10 mg HS BRUNILDA Administration Bupropion HCl 150 mg 12/17/18 09:00 12/18/18 09:23 Wellbutrin Xl PO 150 mg QAM BRUNILDA Administration Diltiazem HCl 180 mg 12/17/18 09:00 12/18/18 09:23 Cardizem Cd PO 180 mg QAM BRUNILDA Administration Losartan Potassium 100 mg 12/16/18 21:00 12/17/18 21:28 Cozaar PO 100 mg QPM BRUNILDA Administration Metoprolol Succinate 50 mg 12/16/18 21:00 12/17/18 21:23 Toprol Xl PO 50 mg QPM BRUNILDA Administration Mirabegron 50 mg 12/17/18 09:00 12/18/18 09:23 Myrbetriq Er PO 50 mg QAM BRUNILDA Administration Pantoprazole Sodium 40 mg 12/17/18 09:00 12/18/18 09:23 Protonix PO 40 mg QAM BRUNILDA Administration Quetiapine Fumarate 50 mg 12/16/18 21:00 12/17/18 21:21 Seroquel PO 50 mg HS BRUNILDA Administration - Exam General Appearance: NAD, awake alert Heart: RRR, no murmur, no gallops, no rubs, normal peripheral pulses Respiratory: CTAB, no wheezes, no rales, no ronchi, normal chest expansion, no tachypnea, normal percussion Gastrointestinal: soft, non-tender, non-distended, normal bowel sounds, no palpable masses, no hepatomegaly, no splenomegaly, no bruit Extremities: no cyanosis, no clubbing, no edema Skin: normal turgor Musculoskeletal: generalized weakness Psychiatric: normal affect, normal behavior, A&O x 3 Hosp A/P (1) Acute encephalopathy Code(s): G93.40 - ENCEPHALOPATHY, UNSPECIFIED Status: Acute (2) Afib Code(s): I48.91 - UNSPECIFIED ATRIAL FIBRILLATION Status: Acute (3) HTN (hypertension) Code(s): I10 - ESSENTIAL (PRIMARY) HYPERTENSION Status: Chronic Qualifiers: Hypertension type: essential hypertension Qualified Code(s): I10 - Essential (primary) hypertension (4) Polypharmacy Code(s): Z79.899 - OTHER USP (CURRENT) DRUG THERAPY Status: Chronic (5) Falls Code(s): W19.XXXA - UNSPECIFIED FALL, INITIAL ENCOUNTER Status: Acute (6) Tremor Code(s): R25.1 - TREMOR, UNSPECIFIED Status: Acute - Plan Fully oriented and appears to be back to baseline. No tremor or twitching today at all. PT consult. MRI still pending. Cultures negative. Rehab eval. Staying off the Duloxetine. Concerned this may have been serotonin syndrome. Could have been ambien W/D. Sleep deprivation definitely contributed.
--- NOTE | 2018-12-18 15:02 | RAD ---
EXAM: Chest one view: HISTORY: Hypoxemia COMPARISON: 12/15/2018 FINDINGS: Left transvenous pacemaker Heart size: Within normal limits. Lungs: Clear of acute process. No evidence for confluent pneumonia, pleural effusion, acute edema, or pneumothorax, or other signifi cant acute process. IMPRESSION: No significant acute intrathoracic disease. Stable exam.
--- NOTE | 2018-12-18 16:33 | MRI ---
EXAM: Brain MRI Without contrast: HISTORY: Acute encephalopathy COMPARISON: Head CT 12/15/2018, brain MRI, 09/07/2009 FINDINGS: Multiplanar multisequence MRI examination of the brain is performed. The ventricles are within normal limits of size shape and position. No mass or midline shift. No evidence for intra or extra-axial hemorrhage. No evidence for abnormal restricted diffusion. No evidence for acute infarct. Normal-appearing flow voids are noted. The extracranial soft tissues and calvarial marrow signal appear within normal limits. Bilateral maxillary and ethmoid sinus mucosal disease. Scattered areas of chronic white matter ischemic change IMPRESSION: No significant acute intracranial process. No mass or bleed. No acute infarct. Bilateral sinus mucosal disease. Chronic white matter ischemic change.
[2018-12-18] MEDS: Atorvastatin Calcium 10 MG TAB PO SCH (20:21)
[2018-12-18] MEDS: Amiodarone 200 MG TAB PO SCH (20:21)
[2018-12-18] MEDS: Losartan 25 MG TAB PO SCH (20:22)
[2018-12-19] MEDS: Apixaban 5 MG TAB PO SCH (08:02)
[2018-12-19] MEDS: Bupropion 150 MG XL TAB PO SCH (08:02)
[2018-12-19] MEDS: Amoxicillin/Potassium Clav 875 MG TAB PO SCH (08:02)
[2018-12-19 10:58] VITALS: BP 146/85; TEMP 98.1
[2018-12-19] MEDS ORDERED: FLU VACC TS2019-20(65YR UP)/PF 180 MCG/0.5 ML SYRINGE IM ONE (14:00)
--- NOTE | 2018-12-20 09:21 | PQF ---
BRANDI HOPSON DAVID R MD [id number] CLINICAL DOCUMENTATION CLARIFICATION FORM: POST DISCHARGE Addendum to original discharge summary date: ____ Late entry note date: __ DATE:12/20/2018 ATTN:MORGAN DE LA VEGA MD Please exercise your independent, professional judgment in responding to the clarification form. Clinical indicators are provided on the bottom of this form for your review Please check appropriate box(s): Kindly clarify the etiology of encephalopthy [ ] Encephalopthy is due to toxic effects of Drug [ x ] Encephalopthy is due to adverse effects of Drug [ ] Encephalopthy is due to Dementia [ ] Encephalopthy NOS [ ] Other diagnosis [ ] Unable to determine In addition, please specify: Present on Admission (POA): [ ] Yes [ ] No [ ] Unable to determine For continuity of documentation, please document condition throughout progress notes and discharge summary. Thank You. CLINICAL INDICATORS - SIGNS / SYMPTOMS / LABS Acute encephalopthy.Unclear etiology,Suspect may be related to meds. ? ambien W/ D V Paradoxical reaction to benadryl V serotonin syndrome-Docunetd in H&P on by David jiménez Acute psychosis-Documented in consultation on 12/16 by Vaughn Goldstein MD The spells are confusing but they are most likely associated with a drug interaction side effct or perhaps associated with a psychotic break secondary to her mood disorder-Documented in consultation on 12/16 by Vaughn Goldstein MD Delirium-Documented in PN on 12/18 by Vaughn Goldstein The patient with confusion and hallucination in the background of pre existing mild dementia-Documented in consultation on 12/16 by Genny Grant RISK FACTORS Acute psychosis-Documented in consultation on 12/16 by Vaughn Goldstein MD Acute kidney injury-Documented in consultation on 12/16 by Vaughn Goldstein MD Delirium-Documented in PN on 12/18 by Vaughn Goldstein TREATMENTS: Quetiapine 50 mg -Documented in consultation on 12/16 by Genny Grant SAP Technical Illustrator Crystal Reports Winform ViewerBrain MRI on 11/[address] on 12/15 Ativan 1 mg-Documented in Medication snapshot (This form is maintained as a part of the permanent medical record) 2014 [facility], [email or web address]. All Rights Reserved [email or web address] [not provided] MTDD
--- NOTE | 2018-12-20 14:50 | DIS ---
DATE OF ADMISSION: 12/16/2018 DATE OF DISCHARGE: 12/19/2018 DISCHARGE DIAGNOSES: 1. Acute encephalopathy. 2. Polypharmacy. 3. Atrial fibrillation. 4. Hypertension. 5. Falls. 6. Tremor. HISTORY OF PRESENT ILLNESS: The patient is an 83-year-old female who presented via the emergency department. The patient had been previously taking Ambien on a regular basis. She has been experiencing increased number of falls and some tremors. She has subsequently discontinued her Ambien and started taking other medications in order to try to help her sleep, including Benadryl. She subsequently became increasingly confused, worsening tremor, and acting more erratically and the family brought her to the emergency department. There, her workup including a CT of the head and chest x-ray was generally unremarkable. She did receive steroids and Benadryl because of an iodine allergy prior to receiving the CT scan and appeared to be made worse of the Benadryl. She subsequently received some Ativan and Haldol and was then admitted to the hospital for further evaluation. There was no evidence of underlying infection. HOSPITAL COURSE: The patient was admitted to the stroke floor; however, she subsequently became more activated, again requiring additional Ativan and subsequently transferred her to the ICU. The patient had not slept in a couple of days according to the family; therefore, after the Ativan, she was essentially left as quietly as possible and she did subsequently sleep through the night. The following morning, she was substantially better. She was more cognizant with far less tremor, but she was still a bit altered and was having some muscle twitching generally. An MRI was ordered, however it got delayed because of an indwelling pacemaker. The patient was seen by Neurology and 50 mg of Seroquel was recommended for nighttime. The patient subsequently took that dose that night and by the following day, appeared to be completely back at her baseline. Ultimately, an MRI was obtained which was negative for any acute findings and it was felt the patient was suffering from some polypharmacy issues, thus she was evaluated by Physical Therapy and noted to be generally debilitated. Given all this, the patient was felt to benefit from rehab. She was seen by inpatient rehab and accepted there in transfer. PHYSICAL EXAMINATION: VITAL SIGNS: Today at discharge, temperature was 98.1, pulse 64, respirations 16, O2 saturation 95% on room air, and BP 146/85. GENERAL: She was awake and alert. HEART: Irregular, but no murmurs. LUNGS: Clear. ABDOMEN: Benign. NEUROLOGIC: She appeared to have no significant tremor. She was cognitively intact and had no gross focal deficits. DISPOSITION: The patient is discharged to [facility]. ACTIVITY: As tolerated. DIET: She will be on a regular diet. She will have PT and OT. DISCHARGE MEDICATIONS: She will be on: 1. Seroquel 50 mg at bedtime. 2. Myrbetriq 50 mg q.a.m. 3. Folic acid 0.8 mg daily. 4. Vitamin D 2000 units daily. 5. Diltiazem 180 mg daily. 6. Losartan 100 mg daily. 7. Apixaban 5 mg b.i.d. 8. Simvastatin 20 mg daily. 9. Metoprolol 50 mg daily. 10. Potassium 20 mEq daily. 11. Calcium 200 mg daily. 12. Pantoprazole 40 mg daily. 13. Amiodarone 200 mg at bedtime. She will discontinue [place], Cymbalta, gabapentin, and clonidine. FOLLOWUP: She can follow up with her PCP following discharge from rehab and she can return to the hospital at any time should she feel the need to do so. Time spent in discharge activities was 33 min. Job ID: [id number] [facility]
== END 2018-12-19 13:16 | DRG 92 ==
LOC: ERS 15:09 → 2SE 21:08 → IMCU/EMU 22:06 → OBSVTOIN 12-16 08:09 → T4-A 12-18 13:05
PROVIDERS: ADMIT Internal Medicine; ATTEND Internal Medicine
DX: G92 Toxic encephalopathy (principal); N17.9 Acute kidney failure, unspecified; F03.91 Unspecified dementia, unspecified severity, with behavioral disturbance; F05 Delirium due to known physiological condition; T50.995A Adverse effect of other drugs, medicaments and biological substances, initial encounter; E78.5 Hyperlipidemia, unspecified; I10 Essential (primary) hypertension; F41.9 Anxiety disorder, unspecified; F32.9 Major depressive disorder, single episode, unspecified; Z95.0 Presence of cardiac pacemaker; I48.91 Unspecified atrial fibrillation; R40.2362 Coma scale, best motor response, obeys commands, at arrival to emergency department; R40.2142 Coma scale, eyes open, spontaneous, at arrival to emergency department; R40.2252 Coma scale, best verbal response, oriented, at arrival to emergency department; R25.1 Tremor, unspecified; Z79.899 Other long term (current) drug therapy; J32.0 Chronic maxillary sinusitis; Z79.01 Long term (current) use of anticoagulants; M19.90 Unspecified osteoarthritis, unspecified site; G89.29 Other chronic pain
CPT/HCPCS: 36415; 36416; 70450; 70551; 71045; 76770; 80048; 80053; 80076; 80306; 80307; 81003; 82140; 82550; 82553; 82805; 83735; 84100; 84484; 85025; 85610; 85730; 87040; 90471; 90662; 93005; 96361; 96374; 96375; G0008; J1200; J1630; J2060; J2930; S0028

== ENCOUNTER 2019-02-27 13:47 | Inpatient (IN) | payer MEDICARE, BC ==
--- NOTE | 2019-02-27 14:29 | RAD ---
CHEST 2 VIEWS: HISTORY: Shortness of breath. COMPARISON: Radiograph 12/18/2018. FINDINGS: The heart size is enlarged. The pulmonary arteries are dilated. A dual-lead pacemaker is in place. There are abnormal increased opacities in both upper lobes and both lower lobes. No acute osseous abnormality. IMPRESSION: New scattered airspace opacities concerning for multifocal infection. Underlying pulmonary edema is felt somewhat less likely. Followup after treatment recommended. POS: [facility]
[2019-02-27 14:39] LABS: Hemoglobin 10.9 g/dL (12.0-16.0); Mean Corpuscular HGB CONC 31.4 g/dL (32.0-36.0); Mean Corpuscular Hemoglobin 29.9 pg (27.0-31.0); Mean Corpuscular Volume 95.3 fL (78.0-98.0); Mean Platelet Volume 8.6 fL (7.4-10.4); Platelet Count 191 thou/uL (130-400); Red Blood Cell (RBC) Count 3.65 mill/uL (4.20-5.40)
[2019-02-27 14:57] LABS: Band 25 % (5-11); Hypochromia SLIGHT = 6-15 cells (100X) (0-5/hpf); Lymphocytes 5 % (21-51); MDiff Complete? YES; Monocytes 14 % (0-10); Neutrophil 55 % (42-75); Platelet Morphology Comment Appears Adequate; Polychromasia SLIGHT = 2-3 cells (100X) (0-2/hpf)
[2019-02-27 14:59] LABS: ALT (SGPT) 14 U/L (8-55); AST (SGOT) 24 U/L (5-34); Albumin 3.5 g/dL (3.4-4.8); Alkaline Phosphatase 80 U/L (40-110); Anion Gap 12 mmol/L (10-20); BUN (Urea Nitrogen) 18 mg/dL (9.8-20.1); Bilirubin, Total 0.9 mg/dL (0.2-1.2); Calc. Creatinine Clearance 0 mL/min (70-130); Calcium 8.8 mg/dL (7.8-10.44); Carbon Dioxide 27 mmol/L (23-31); Chloride 99 mmol/L (98-107); Estimated GFR-MDRD 37; Globulin 3.2 g/dL (2.4-3.5); Glucose 112 mg/dL (83-110); Potassium 3.9 mmol/L (3.5-5.1); Protein, Total 6.7 g/dL (6.0-8.3); Sodium 134 mmol/L (136-145)
[2019-02-27] MEDS ORDERED: Sodium Chloride 0.9% 100 ML ONE (15:17)
[2019-02-27] MEDS ORDERED: cefTRIAXone\\ROCEPHIN 1 GM VIAL ONE (15:17)
[2019-02-27] MEDS ORDERED: Acetaminophen 325 MG TAB ONE (15:23)
[2019-02-27] MEDS ORDERED: Azithromycin 500 MG VIAL ONE (15:49)
[2019-02-27 16:42] LABS: Bacteria/HPF None Seen HPF (None Seen); Bilirubin Negative (Negative); Blood, Urine Trace (Negative); Clarity Clear (Clear); Glucose, Urine (Dipstick) Normal (Negative); Leukocyte Negative Leu/uL (Negative); Nitrite Negative (Negative); Protein, Urine (Dipstick) 20 mg/dL (Neg-Trace); RBC/HPF 0-3 HPF (0-3); Squamous Epithelial 0-3 HPF (0-3); Urobilinogen Normal mg/dL (Less than 2); WBC/HPF 0-3 HPF (0-3)
[2019-02-27 18:32] LABS: CKMB 1.2 ng/mL (0-6.6)
[2019-02-27] MEDS ORDERED: Aspirin Chewable 81 MG TAB ONE (18:36)
[2019-02-27 20:31] LABS: Troponin I 0.038 ng/mL (< 0.028)
[2019-02-27 20:45] VITALS: BMI 28.1
[2019-02-27] MEDS ORDERED: Amiodarone 200 MG TAB PO SCH (21:30)
[2019-02-27] MEDS ORDERED: Apixaban 5 MG TAB PO SCH (21:30)
[2019-02-27] MEDS ORDERED: Simvastatin 20 MG TAB PO SCH (21:30)
[2019-02-27] MEDS ORDERED: Gabapentin 300 MG CAP PO SCH (21:30)
[2019-02-27] MEDS ORDERED: Bupropion 150 MG XL TAB PO SCH (21:30)
[2019-02-27] MEDS ORDERED: Losartan 25 MG TAB PO SCH (21:30)
[2019-02-27] MEDS ORDERED: hydrALAZINE 20 MG/ML VIAL SLOW IVP PRN (23:03)
[2019-02-27] MEDS ORDERED: cloNIDine 0.1 MG TAB PO PRN (23:03)
[2019-02-27] MEDS ORDERED: Promethazine HCl 12.5 MG in Sodium Chloride 0.9% 50 ML IVPB PRN (23:03)
[2019-02-27] MEDS ORDERED: Ondansetron PF 4 MG/2 ML Vial IVP PRN (23:03)
--- NOTE | 2019-02-27 23:12 | PDOC.HHP ---
Hospitalist HPI - History of Present Illness Cough, shortness of breath History of Present Illness: 84 year old female with PMH atrial fibrillation on eliquis, asthma who presents with 2 days of productive cough, fever to 102.9, wheezing/SOB. Symptoms started Sunday after eye Dr Appointment. Patient has asthma and usually uses 1 breathing treatment a day, now requiring 2, was placed on O2 in ER, does not use at home. denies chest pain/palpitaitons. Has chills and SOB improved with supplemental o2. she has pacemaker. in ED, VS 90 on RA but reported hypoxic by ED provider not specified how much, temp 100.0, otherwise wnl. EKG w/ nonspecific T wave changes, she had CXR w/ multifocal pneumonia, recieved azithromycin and ceftriaxone and sound physicians paged for admission. Hospitalist ROS - Review of Systems Constitutional: reports: fever, chills, sweats, weakness, malaise Eyes: denies: pain, vision change, redness ENT: denies: mouth swelling, throat pain, throat swelling Respiratory: reports: cough, shortness of breath, wheezing. denies: pleuritic pain Cardiovascular: denies: chest pain, palpitations, orthopnea, light headedness Gastrointestinal: denies: nausea, vomiting Genitourinary: denies: dysuria, frequency Musculoskeletal: denies: neck pain, shoulder pain Skin: denies: rash, lesions Neurological: denies: weakness, numbness All other systems reviewed; all pertinent +/- noted in HPI/Subj - Medication Medications: Active Medications Generic Name Dose Route Start Last Admin Trade Name Freq PRN Reason Stop Dose Admin Amiodarone HCl 200 mg 02/27/19 21:30 02/27/19 21:56 Cordarone PO 02/27/19 23:30 200 mg NOW BRUNILDA Administration Apixaban 5 mg 02/27/19 21:30 02/27/19 21:56 Eliquis PO 02/27/19 23:30 5 mg NOW BRUNILDA Administration Bupropion HCl 150 mg 02/27/19 21:30 02/27/19 21:56 Wellbutrin Xl PO 02/27/19 23:30 150 mg NOW BRUNILDA Administration Gabapentin 300 mg 02/27/19 21:30 02/27/19 21:56 Neurontin PO 02/27/19 23:30 300 mg NOW BRUNILDA Administration Losartan Potassium 100 mg 02/27/19 21:30 02/27/19 21:57 Cozaar PO 02/27/19 23:30 100 mg NOW BRUNILDA Administration Metoprolol Succinate 50 mg 02/27/19 21:30 02/27/19 21:57 Toprol Xl PO 02/27/19 23:30 50 mg NOW BRUNILDA Administration Quetiapine Fumarate 25 mg 02/27/19 21:30 02/27/19 21:57 Seroquel PO 02/27/19 23:30 25 mg NOW BRUNILDA Administration Simvastatin 20 mg 02/27/19 21:30 02/27/19 21:58 Zocor PO 02/27/19 23:30 20 mg NOW BRUNILDA Administration Hospitalist History - Past Medical History Other Medical History: atrial fibrillation asthma - Past Surgical History Other Surgical History: pacemaker hip surgery appendectomy knee surgery - Family History Family History: reports: no pertinent history - Social History Other Social History: denies alcohol, tobacco, drug use - Exam General Appearance: NAD, awake alert Eye: PERRL, anicteric sclera ENT: normocephalic atraumatic, no oropharyngeal lesions, moist mucosa Neck: supple, symmetric, no JVD, no thyromegaly, no lymphadenopathy, no carotid bruit Heart: RRR, no murmur, no gallops, no rubs, normal peripheral pulses Respiratory: rales, rhonchi, wheezes Gastrointestinal: soft, non-tender, non-distended, normal bowel sounds, no palpable masses, no hepatomegaly, no splenomegaly, no bruit Extremities: no cyanosis, no clubbing, no edema Skin: normal turgor, no lesions, no rashes Neurological: cranial nerve grossly intact, normal sensation to touch, no weakness, no focal deficits, no new deficit Musculoskeletal: normal tone, normal strength, no muscle wasting Psychiatric: normal affect, normal behavior, A&O x 3 Hospitalist Results - Labs Result Diagrams: 02/27/19 14:16 02/27/19 14:16 Lab results: WBC 16.0 thou/uL (4.8-10.8) H 02/27/19 14:16 Hgb 10.9 g/dL (12.0-16.0) L 02/27/19 14:16 Hct 34.8 % (36.0-47.0) L 02/27/19 14:16 MCV 95.3 fL (78.0-98.0) 02/27/19 14:16 Plt Count 191 thou/uL (130-400) 02/27/19 14:16 Band Neuts % (Manual) 25 % (5-11) H 02/27/19 14:16 Sodium 134 mmol/L (136-145) L 02/27/19 14:16 Potassium 3.9 mmol/L (3.5-5.1) 02/27/19 14:16 Chloride 99 mmol/L (98-107) 02/27/19 14:16 Carbon Dioxide 27 mmol/L (23-31) 02/27/19 14:16 BUN 18 mg/dL (9.8-20.1) 02/27/19 14:16 Creatinine 1.36 mg/dL (0.6-1.1) H 02/27/19 14:16 Glucose 112 mg/dL (83-110) H 02/27/19 14:16 Lactic Acid 1.1 mmol/L (0.5-2.2) 02/27/19 14:16 Calcium 8.8 mg/dL (7.8-10.44) 02/27/19 14:16 Total Bilirubin 0.9 mg/dL (0.2-1.2) 02/27/19 14:16 AST 24 U/L (5-34) 02/27/19 14:16 ALT 14 U/L (8-55) 02/27/19 14:16 Alkaline Phosphatase 80 U/L (40-110) 02/27/19 14:16 CK-MB (CK-2) 1.2 ng/mL (0-6.6) 02/27/19 17:40 Troponin I 0.038 ng/mL (< 0.028) H 02/27/19 19:59 Serum Total Protein 6.7 g/dL (6.0-8.3) 02/27/19 14:16 Albumin 3.5 g/dL (3.4-4.8) 02/27/19 14:16 Urine Ketones Negative mg/dL (Negative) 02/27/19 16:20 Urine Blood Trace (Negative) A 02/27/19 16:20 Urine Nitrite Negative (Negative) 02/27/19 16:20 Ur Leukocyte Esterase Negative Sintia/uL (Negative) 02/27/19 16:20 Urine RBC 0-3 HPF (0-3) 02/27/19 16:20 Urine WBC 0-3 HPF (0-3) 02/27/19 16:20 Ur Squamous Epith Cells 0-3 HPF (0-3) 02/27/19 16:20 Urine Bacteria None Seen HPF (None Seen) 02/27/19 16:20 Additional comment: VITAL SIGNS [facility] Feb 27, 2019 16:33 JERMAN Mcpherson, Jo Ann BP: 127/60 MAP: 82 Pulse: 62 Resp: 19 Temp: 99.2 (Oral) Pain: 0 O2 sat: 94 on (Room Air) Time: 02/27/2019 16:33. O2 sat: 90 on (Room Air) Time: 02/27/2019 13:49. home meds per ED, final med rec reviewed in chart and meds restarted as indicated diltiazem oral CAPSULE, EXTENDED RELEASE : Strength - 180 mg : ORAL Patient Dose: 1 tab(s) Oral once a day. Eliquis TABLET : Strength - 5 mg : ORAL Patient Dose: 1 tab(s) Oral 2 times a day. pantoprazole oral TABLET, DELAYED RELEASE (ENTERIC COATED) : Strength - 40 mg : ORAL Patient Dose: 1 tab(s) Oral once a day. calcium citrate-vitamin D3 TABLET : Strength - 200 mg calcium-200 unit : ORAL Patient Dose: 1 tab(s) Oral once a day.AT NOON. EKG paced, rate 60, nonspecific T wave changes, QTc 374 Hospitalist H&P A/P - Plan Plan: 84 year old female with PMH atrial fibrillation on eliquis, asthma who presents with 2 days of productive cough, fever to 102.9, wheezing/SOB. # multifocal pneumonia - admit to floor, continue azithro/ceftriaxone # asthma w/ exacerbation - scheduled + PRN duoneb WA, start PO steroids for faint wheezing # atrial fibrillation w/ pacemaker - rate paced, continue home dilt/metoprolol/ amiodarone # hypoxia - secondary to multifocal pneumonia, treat as above, flu a/b negative , wean o2 as tolerated # leukocytosis - leukemoid rxn to pneumonia likely # CKD III - trend, Cr with wide range in chart # elevated TnI - indeterminant, got ASA, continue to trend, likely secondary to demand/hypoxia # sepsis - due to pneumonia, follow cultures ordered for AM
[2019-02-28 00:04] LABS: Troponin I 0.037 ng/mL (< 0.028)
[2019-02-28 06:00] LABS: #Eosinphils 0.1 thou/uL (0.0-0.7); #Lymphocytes 0.9 thou/uL (1.20-3.40); #Monocytes 1.7 thou/uL (0.11-0.59); #Neutrophils 10.5 thou/uL (1.40-6.50); %Basophils 0.1 % (0.0-1.0); %Eosinophils 0.4 % (0.0-10.0); %Lymphocytes 6.6 % (21.0-51.0); %Monocytes 12.7 % (0.0-10.0); %Neutrophils 80.2 % (42.0-75.0); Hemoglobin 9.5 g/dL (12.0-16.0); Mean Corpuscular HGB CONC 32.6 g/dL (32.0-36.0); Mean Corpuscular Volume 95.2 fL (78.0-98.0); Mean Platelet Volume 8.6 fL (7.4-10.4); Platelet Count 163 thou/uL (130-400); Red Blood Cell (RBC) Count 3.05 mill/uL (4.20-5.40); White Blood Cell (WBC) Count 13.1 thou/uL (4.8-10.8)
[2019-02-28 06:22] LABS: Anion Gap 11 mmol/L (10-20); BUN (Urea Nitrogen) 15 mg/dL (9.8-20.1); Calc. Creatinine Clearance 43 mL/min (70-130); Calcium 8.2 mg/dL (7.8-10.44); Carbon Dioxide 27 mmol/L (23-31); Chloride 102 mmol/L (98-107); Estimated GFR-MDRD 42; Glucose 106 mg/dL (83-110); Potassium 3.8 mmol/L (3.5-5.1); Sodium 136 mmol/L (136-145)
[2019-02-28 06:26] LABS: Troponin I 0.021 ng/mL (< 0.028)
[2019-02-28] MEDS: predniSONE 20 MG TAB PO SCH (09:31)
[2019-02-28] MEDS: Apixaban 5 MG TAB PO SCH ×2 (09:32→20:24)
[2019-02-28] MEDS: Aspirin 81 mg Enteric Coated Tablet PO SCH (09:32)
[2019-02-28] MEDS: Azithromycin 250 MG TAB PO SCH (09:33)
[2019-02-28] MEDS: Senokot S 8.6-50 MG TAB PO SCH ×2 (09:35→20:26)
[2019-02-28] MEDS: Polyethylene Glycol 3350 17 GM Packet PO SCH (09:35)
[2019-02-28] MEDS: Calcium Citrate 950 MG TAB PO SCH (12:03)
[2019-02-28] MEDS: Folic Acid 1 MG TAB PO SCH (12:04)
[2019-02-28] MEDS: Ferrous Sulfate 325 MG TAB PO SCH (12:04)
[2019-02-28 12:06] LABS: Troponin I 0.023 ng/mL (< 0.028)
[2019-02-28] MEDS: Sodium Chloride 0.45% 1,000 ML IV SCH (17:09)
--- NOTE | 2019-02-28 18:55 | PDOC.HOSPP ---
- Subjective Encounter Date: 02/28/19 Encounter Time: 07:20 Subjective: Pt seen for followup re: pneumonia. Feels slightly better. Low-grade fevers. Cough+, minimal sputum. - Objective Vital Signs & Weight: Vital Signs (12 hours) Temp Pulse Resp BP BP Pulse Ox 02/28/19 16:01 98.5 F 83 18 121/72 93 L 02/28/19 14:50 78 18 92 L 02/28/19 14:03 98.3 F 83 14 122/67 92 L 02/28/19 12:35 98.3 F 63 18 122/58 L 94 L 02/28/19 11:47 98.2 F 68 18 129/63 94 L 02/28/19 10:48 69 16 02/28/19 08:16 99.2 F 69 18 119/87 95 02/28/19 07:12 62 16 97 Weight Admit Weight 174 lb 6.4 oz Weight 174 lb 6.4 oz I&O: 02/27/19 02/28/19 03/01/19 06:59 06:59 06:59 Intake Total 500 Output Total 700 Balance -200 Result Diagrams: 02/28/19 05:28 02/28/19 05:28 Additional Labs: Labs and MARs reviewed by me EKG Reviewed by me: Yes (Tele: A-paced) Hospitalist ROS - Review of Systems Constitutional: reports: fever, weakness. denies: chills, sweats, malaise Respiratory: reports: cough, sputum. denies: dry, shortness of breath, hemoptysis, SOB with excertion, pleuritic pain, wheezing Cardiovascular: denies: chest pain, palpitations, orthopnea, paroxysmal noc. dyspnea, edema, light headedness Gastrointestinal: denies: nausea, vomiting, abdominal pain, diarrhea, constipation, melena, hematochezia Genitourinary: denies: dysuria, frequency, incontinence, hematuria, retention Skin: reports: bruising - Medication Medications: Active Medications Generic Name Dose Route Start Last Admin Trade Name Freq PRN Reason Stop Dose Admin Albuterol/Ipratropium 3 ml 02/28/19 07:00 02/28/19 14:50 Duoneb IPPB 3 ml [id number] BRUNILDA Administration Albuterol/Ipratropium 3 ml 02/27/19 23:03 02/28/19 03:31 Duoneb NEB 3 ml Q2H PRN Administration SOB &/or Wheezing Apixaban 5 mg 02/28/19 09:00 02/28/19 09:32 Eliquis PO 5 mg BID BRUNILDA Administration Aspirin 81 mg 02/28/19 09:00 02/28/19 09:32 Ecotrin PO 81 mg DAILY BRUNILDA Administration Azithromycin 250 mg 02/28/19 09:00 02/28/19 09:33 Zithromax PO 03/03/19 09:01 250 mg DAILY BRUNILDA Administration Calcium Citrate 950 mg 02/28/19 12:00 02/28/19 12:03 Calcium Citrate PO 950 mg 1200 BRUNILDA Administration Cholecalciferol 2,000 units 02/28/19 12:00 02/28/19 12:03 Vitamin D3 PO 2,000 units 1200 BRUNILDA Administration Diltiazem HCl 180 mg 02/28/19 09:00 02/28/19 09:33 Cardizem Cd PO 180 mg QAM BRUNILDA Administration Ferrous Sulfate 325 mg 02/28/19 12:00 02/28/19 12:04 Feosol PO 325 mg 1200 BRUNILDA Administration Folic Acid 1 mg 02/28/19 12:00 02/28/19 12:04 Folvite PO 1 mg 1200 BRUNILDA Administration Sodium Chloride 1,000 mls @ 75 mls/hr 02/28/19 16:30 02/28/19 17:09 1/2 Normal Saline IV 1,000 mls .[id number] BRUNILDA Administration Mirabegron 50 mg 02/28/19 09:00 02/28/19 09:34 Myrbetriq Er PO 50 mg QAM BRUNILDA Administration Pantoprazole Sodium 40 mg 02/28/19 09:00 02/28/19 09:35 Protonix PO 40 mg QAM BRUNILDA Administration Polyethylene Glycol 17 gm 02/28/19 09:00 02/28/19 09:35 Miralax PO 17 gm DAILY BRUNILDA Administration Prednisone 40 mg 02/28/19 08:00 02/28/19 09:31 Prednisone PO 03/04/19 08:01 40 mg QAM-WM BRUNILDA Administration Senna/Docusate Sodium 1 tab 02/28/19 09:00 02/28/19 09:35 Senokot S PO 1 tab BID BRUNILDA Administration - Exam General Appearance: NAD Eye: anicteric sclera ENT: moist mucosa Neck: supple, symmetric, no JVD, no thyromegaly Heart: RRR, no gallops, no rubs, normal peripheral pulses Respiratory - other findings: John crackles Gastrointestinal: soft, non-tender, non-distended, normal bowel sounds Extremities: no edema Skin - other findings: bruises Psychiatric: normal affect, normal behavior, A&O x 3 Hosp A/P (1) Pneumonia Code(s): J18.9 - PNEUMONIA, UNSPECIFIED ORGANISM Status: Acute (2) Asthma exacerbation Code(s): J45.901 - UNSPECIFIED ASTHMA WITH (ACUTE) EXACERBATION Status: Acute (3) Acute myocardial infarction Code(s): I21.9 - ACUTE MYOCARDIAL INFARCTION, UNSPECIFIED Status: Acute Qualifiers: Myocardial infarction type: type 2 Qualified Code(s): I21.A1 - Myocardial infarction type 2 (4) Sick sinus syndrome Code(s): I49.5 - SICK SINUS SYNDROME Status: Chronic (5) HTN (hypertension) Code(s): I10 - ESSENTIAL (PRIMARY) HYPERTENSION Status: Chronic Qualifiers: Hypertension type: essential hypertension Qualified Code(s): I10 - Essential (primary) hypertension (6) Chronic kidney disease, stage 3 Code(s): N18.3 - CHRONIC KIDNEY DISEASE, STAGE 3 (MODERATE) Status: Chronic - Plan plan discussed w/ family, continue antibiotics, out of bed/ambulate continue ceftriaxone and azithromycin. continue bronchodilators and steroids. HTN controlled. CKD stable. Continue apixaban for a. fib/SSS. NSTEMI type 2 secondary to pneumonia, troponin normalized. Consult pulmonology.
[2019-02-28] MEDS: Simvastatin 20 MG TAB PO SCH (20:25)
[2019-02-28] MEDS: Gabapentin 300 MG CAP PO SCH (20:25)
[2019-02-28] MEDS: Losartan 25 MG TAB PO SCH (20:26)
[2019-02-28] MEDS: Bupropion 150 MG XL TAB PO SCH (20:26)
[2019-02-28] MEDS: Amiodarone 200 MG TAB PO SCH (20:26)
[2019-02-28] MEDS: cefTRIAXone\\ROCEPHIN 1 GM in Sodium Chloride 0.9% 100 ML IVPB SCH (23:31)
[2019-02-28] MEDS: HYDROcodone/Acetaminophen 7.5/325 mg Tablet PO PRN (23:35)
--- NOTE | 2019-03-01 00:59 | CON ---
DATE OF CONSULTATION: 02/28/2019 HISTORY OF PRESENT ILLNESS: Shana is a pleasant 84-year-old female, who I have followed in the office. She presented yesterday evening with several days of increasing shortness of breath, cough, fever, and wheezing. She tried to get in with her primary care physician and was unable to. She subsequently was admitted to the hospital. She says she is feeling a little better than she felt yesterday. PAST MEDICAL HISTORY: Remarkable for; 1. Atrial fibrillation. 2. History of asthma. 3. History of pacemaker. 4. History of hip surgery. 5. History of appendectomy. 6. History of knee surgery. SOCIAL HISTORY: She is a nonsmoker and nondrinker. FAMILY HISTORY: Negative for lung disease in early age. REVIEW OF SYSTEMS: Ten-points review of systems completed, otherwise negative. REVIEW OF SYSTEMS: GENERAL: She is in no distress. VITAL SIGNS: She is afebrile. Heart rate 83, respiratory rate is 18, oximetry is 93%, and blood pressure 121/72. HEAD AND NECK: Unremarkable. She has no cervical lymphadenopathy. LUNGS: Remarkable for end-expiratory wheezes. HEART: Regular rhythm. ABDOMEN: Soft. EXTREMITIES: Without clubbing, cyanosis, or edema. NEUROLOGIC: Nonfocal. LABORATORY DATA: White count 13.1, hemoglobin 9.5, platelets 163. She had 25% bands yesterday. A manual differential was not done today. Electrolytes are normal. Creatinine is 1.21. Chest x-ray shows patchy bilateral infiltrates. IMPRESSION: Community-acquired pneumonia. She says she is feeling better, so would not make any current changes. We will continue current antimicrobial therapy for another 24 hours and can switch her to p.o. medications. I would continue with her nebulized treatments. She is on prednisone, which is reasonable given that she is not severely bronchospastic. Probably would give her more prednisone and just 5 days that is ordered once she is discharged. We will be happy to see her as an outpatient 2 to 3 weeks after discharge. I will evaluate her again tomorrow. TIME SPENT: This is a 50-minute consult, with greater than 50% of the time spent on the unit coordinating care. Job ID: [id number] [facility]
[2019-03-01] MEDS: Sodium Chloride 0.45% 1,000 ML IV SCH ×3 (05:41→19:54)
[2019-03-01 06:23] LABS: Anion Gap 11 mmol/L (10-20); BUN (Urea Nitrogen) 25 mg/dL (9.8-20.1); Calc. Creatinine Clearance 40 mL/min (70-130); Calcium 8.2 mg/dL (7.8-10.44); Carbon Dioxide 27 mmol/L (23-31); Chloride 104 mmol/L (98-107); Estimated GFR-MDRD 39; Glucose 121 mg/dL (83-110); Potassium 3.8 mmol/L (3.5-5.1); Sodium 138 mmol/L (136-145)
[2019-03-01 06:38] LABS: Band 20 % (5-11); Hemoglobin 8.8 g/dL (12.0-16.0); Lymphocytes 5 % (21-51); MDiff Complete? YES; Mean Corpuscular HGB CONC 32.5 g/dL (32.0-36.0); Mean Corpuscular Hemoglobin 30.9 pg (27.0-31.0); Mean Corpuscular Volume 95.1 fL (78.0-98.0); Mean Platelet Volume 9.2 fL (7.4-10.4); Monocytes 9 % (0-10); Neutrophil 66 % (42-75); Platelet Count 162 thou/uL (130-400); RBC Distribution Width 12.6 % (11.5-14.5); Red Blood Cell (RBC) Count 2.86 mill/uL (4.20-5.40)
[2019-03-01] MEDS: Aspirin 81 mg Enteric Coated Tablet PO SCH (08:06)
[2019-03-01] MEDS: Azithromycin 250 MG TAB PO SCH (08:06)
[2019-03-01] MEDS: predniSONE 20 MG TAB PO SCH (08:06)
[2019-03-01] MEDS: Senokot S 8.6-50 MG TAB PO SCH ×2 (08:07→19:57)
[2019-03-01] MEDS: Apixaban 5 MG TAB PO SCH ×2 (08:07→19:57)
[2019-03-01] MEDS: Polyethylene Glycol 3350 17 GM Packet PO SCH (10:23)
[2019-03-01] MEDS: Folic Acid 1 MG TAB PO SCH (11:30)
[2019-03-01] MEDS: Ferrous Sulfate 325 MG TAB PO SCH (11:30)
--- NOTE | 2019-03-01 13:57 | EKG ---
Test Reason : Blood Pressure : / mmHG Vent. Rate : 060 BPM Atrial Rate : 048 BPM P-R Int : 126 ms QRS Dur : 082 ms QT Int : 374 ms P-R-T Axes : 244 -24 -29 degrees QTc Int : 374 ms Electronic atrial pacemaker Nonspecific ST and T wave abnormality Abnormal ECG Confirmed by YENNY CHAVEZ DO ([id number]), senior technical editor TALI ZARAGOZA ([id number]) on 03/01/2019 1:57:25 PM Referred By: Confirmed By:YENNY CHAVEZ DO
[2019-03-01] MEDS: Calcium Citrate 950 MG TAB PO SCH (14:07)
--- NOTE | 2019-03-01 14:15 | PRG ---
DATE OF SERVICE: 03/01/2019 SUBJECTIVE: Meghan Saldana says she is feeling better. OBJECTIVE: VITAL SIGNS: Oximetry is 97% on 2 L, blood pressure 114/67, respiratory rate is 18. She is afebrile. LUNGS: Clear. HEART: Regular rhythm. ABDOMEN: Soft. LABORATORY DATA: White count is 10, hemoglobin 8.8, platelets 162. Electrolytes are normal. BUN 25 and creatinine 1.31. IMPRESSION: 1. Pneumonia. 2. Atrial fibrillation. 3. History of asthma which is clinically not a big issue at this point in time. PLAN: 24-hour cultures are negative. 48-hour cultures are negative. She can be switched to p.o. antimicrobial therapy after today's dose of Rocephin. Job ID: [id number] [facility]
--- NOTE | 2019-03-01 16:25 | PDOC.HOSPP ---
- Subjective Encounter Date: 03/01/19 Encounter Time: 10:30 Subjective: The patient is doing better. She states that she has history of asthma and takes budesonide at home, however not listed on her home med list. She feels less short of breath. She has no fevers today, no chest pain. She is able to clear up more phlegm and it is vazquez in color. daughter states she has not been seen by PT yet. Her oxygen saturation at rest was 89%, however she is worried about ambulatory sat and says she desats while sleeping One ceftriaxone dose missed last night for unclear reason but getting azithro - Objective Vital Signs & Weight: Vital Signs (12 hours) Temp Pulse Resp BP BP Pulse Ox 03/01/19 14:40 63 18 98 03/01/19 10:47 80 18 97 03/01/19 08:00 96 03/01/19 07:15 97.5 F L 64 18 114/67 96 03/01/19 06:49 64 16 92 L 03/01/19 05:53 92 L 03/01/19 04:48 97.8 F 63 16 99/54 L 89 L Weight Admit Weight 174 lb 6.4 oz Weight 174 lb 6.4 oz I&O: 02/28/19 03/01/19 03/02/19 06:59 06:59 06:59 Intake Total 500 720 Output Total 700 Balance -200 720 Result Diagrams: 03/01/19 05:41 03/01/19 05:41 Hospitalist ROS - Review of Systems Constitutional: denies: fever, chills Respiratory: reports: cough - Medication Medications: Active Medications Generic Name Dose Route Start Last Admin Trade Name Freq PRN Reason Stop Dose Admin Hydrocodone Bitart/Acetaminophen 1 tab 02/27/19 21:13 02/28/19 23:35 [place] 7.5/325 PO 1 tab Q6H PRN Administration Moderate Pain (4-6) Albuterol/Ipratropium 3 ml 02/28/19 07:00 03/01/19 14:40 Duoneb IPPB 3 ml [id number] BRUNILDA Administration Albuterol/Ipratropium 3 ml 02/27/19 23:03 02/28/19 03:31 Duoneb NEB 3 ml Q2H PRN Administration SOB &/or Wheezing Amiodarone HCl 200 mg 02/28/19 21:00 02/28/19 20:26 Cordarone PO 200 mg QPM BRUNILDA Administration Apixaban 5 mg 02/28/19 09:00 03/01/19 08:07 Eliquis PO 5 mg BID BRUNILDA Administration Aspirin 81 mg 02/28/19 09:00 03/01/19 08:06 Ecotrin PO 81 mg DAILY BRUNILDA Administration Azithromycin 250 mg 02/28/19 09:00 03/01/19 08:06 Zithromax PO 03/03/19 09:01 250 mg DAILY BRUNILDA Administration Bupropion HCl 150 mg 02/28/19 21:00 02/28/19 20:26 Wellbutrin Xl PO 150 mg HS BRUNILDA Administration Calcium Citrate 950 mg 02/28/19 12:00 03/01/19 14:07 Calcium Citrate PO Not Given 1200 BRUNILDA Cholecalciferol 2,000 units 02/28/19 12:00 03/01/19 11:29 Vitamin D3 PO 2,000 units 1200 BRUNILDA Administration Diltiazem HCl 180 mg 02/28/19 09:00 03/01/19 08:07 Cardizem Cd PO 180 mg QAM BRUNILDA Administration Ferrous Sulfate 325 mg 02/28/19 12:00 03/01/19 11:30 Feosol PO 325 mg 1200 BRUNILDA Administration Folic Acid 1 mg 02/28/19 12:00 03/01/19 11:30 Folvite PO 1 mg 1200 BRUNILDA Administration Gabapentin 300 mg 02/28/19 21:00 02/28/19 20:25 Neurontin PO 300 mg HS BRUNILDA Administration Ceftriaxone Sodium 1 gm/ 100 mls @ 200 mls/hr 02/28/19 23:59 02/28/19 23:31 Sodium Chloride IVPB 03/04/19 00:28 100 mls 2359 BRUNILDA Administration Sodium Chloride 1,000 mls @ 75 mls/hr 02/28/19 16:30 03/01/19 08:10 1/2 Normal Saline IV 1,000 mls .[id number] BRUNILDA Administration Losartan Potassium 100 mg 02/28/19 21:00 02/28/19 20:26 Cozaar PO 100 mg QPM BRUNILDA Administration Metoprolol Succinate 50 mg 02/28/19 21:00 02/28/19 20:25 Toprol Xl PO 50 mg QPM BRUNILDA Administration Mirabegron 50 mg 02/28/19 09:00 03/01/19 10:02 Myrbetriq Er PO 50 mg QAM BRUNILDA Administration Pantoprazole Sodium 40 mg 02/28/19 09:00 03/01/19 08:07 Protonix PO 40 mg QAM BRUNILDA Administration Polyethylene Glycol 17 gm 02/28/19 09:00 03/01/19 10:23 Miralax PO Not Given DAILY BRUNILDA Prednisone 40 mg 02/28/19 08:00 03/01/19 08:06 Prednisone PO 03/04/19 08:01 40 mg QAM-WM BRUNILDA Administration Quetiapine Fumarate 25 mg 02/28/19 21:00 02/28/19 20:26 Seroquel PO 25 mg HS BRUNILDA Administration Senna/Docusate Sodium 1 tab 02/28/19 09:00 03/01/19 08:07 Senokot S PO 1 tab BID BRUNILDA Administration Simvastatin 20 mg 02/28/19 21:00 02/28/19 20:25 Zocor PO 20 mg QPM BRUNILDA Administration - Exam General Appearance: NAD, awake alert Eye: PERRL, anicteric sclera ENT: normocephalic atraumatic, no oropharyngeal lesions Neck: supple, symmetric, no JVD, no thyromegaly Heart: RRR, no murmur, no gallops, no rubs Respiratory: CTAB, no wheezes, no rales, no ronchi Respiratory - other findings: on 2L of oxygen Gastrointestinal: soft, non-tender, non-distended, normal bowel sounds Extremities: no cyanosis, no clubbing Skin: normal turgor, no lesions, no rashes Hosp A/P - Plan Chest Xray: multifocal infection This is 84 year old female with asthma exacerbation and pneumonia Acute hypoxic respiratory failure secondary to pneumonia - continue ceftriaxone day 2, azithromycin day 3. WBC down to 10 - wean oxygen sat to maintain > 92%. Currently down to 1L - PTOT - on prednisone 40 mg day 3 - added inhaled steroid bid Afib - metoprolol, diltiazem, amiodarone, eliquis Anemia - Hb stable CKD - creatinine 1.3, stable Leukocytosis - resolved Dispo: d/c when off oxygen. Needs PT
[2019-03-01] MEDS: Budesonide 0.25 MG/2 ML NEB INH SCH (18:17)
[2019-03-01] MEDS: Amiodarone 200 MG TAB PO SCH (19:55)
[2019-03-01] MEDS: Gabapentin 300 MG CAP PO SCH (19:55)
[2019-03-01] MEDS: Losartan 25 MG TAB PO SCH (19:56)
[2019-03-01] MEDS: Bupropion 150 MG XL TAB PO SCH (19:57)
[2019-03-01] MEDS: Simvastatin 20 MG TAB PO SCH (19:57)
[2019-03-01] MEDS: HYDROcodone/Acetaminophen 7.5/325 mg Tablet PO PRN (21:46)
[2019-03-01] MEDS: cefTRIAXone\\ROCEPHIN 1 GM in Sodium Chloride 0.9% 100 ML IVPB SCH (22:15)
[2019-03-02 04:48] LABS: Anion Gap 12 mmol/L (10-20); BUN (Urea Nitrogen) 30 mg/dL (9.8-20.1); Calc. Creatinine Clearance 44 mL/min (70-130); Calcium 8.3 mg/dL (7.8-10.44); Carbon Dioxide 26 mmol/L (23-31); Chloride 105 mmol/L (98-107); Estimated GFR-MDRD 44; Glucose 124 mg/dL (83-110); Potassium 3.9 mmol/L (3.5-5.1); Sodium 139 mmol/L (136-145)
[2019-03-02 05:13] LABS: Band 16 % (5-11); Hemoglobin 9.4 g/dL (12.0-16.0); Lymphocytes 6 % (21-51); MDiff Complete? YES; Mean Corpuscular HGB CONC 32.8 g/dL (32.0-36.0); Mean Corpuscular Hemoglobin 31.5 pg (27.0-31.0); Mean Platelet Volume 8.9 fL (7.4-10.4); Monocytes 7 % (0-10); Neutrophil 71 % (42-75); Platelet Count 216 thou/uL (130-400); Platelet Morphology Comment Appears Adequate; RBC Distribution Width 12.8 % (11.5-14.5); Red Blood Cell (RBC) Count 2.98 mill/uL (4.20-5.40); White Blood Cell (WBC) Count 10.8 thou/uL (4.8-10.8)
[2019-03-02] MEDS: Budesonide 0.25 MG/2 ML NEB INH SCH (06:56)
[2019-03-02] MEDS: Sodium Chloride 0.45% 1,000 ML IV SCH (07:58)
[2019-03-02] MEDS: predniSONE 20 MG TAB PO SCH (07:59)
[2019-03-02] MEDS: Aspirin 81 mg Enteric Coated Tablet PO SCH (07:59)
[2019-03-02] MEDS: Polyethylene Glycol 3350 17 GM Packet PO SCH (08:00)
[2019-03-02] MEDS: Apixaban 5 MG TAB PO SCH (08:00)
[2019-03-02] MEDS: Azithromycin 250 MG TAB PO SCH (08:00)
[2019-03-02] MEDS: Senokot S 8.6-50 MG TAB PO SCH (08:00)
[2019-03-02 08:06] VITALS: BP 150/74; TEMP 97.9
--- NOTE | 2019-03-02 10:14 | PRG ---
DATE OF SERVICE: 03/02/2019 SUBJECTIVE: Ms. Saldana has no complaints. She wants to go home. OBJECTIVE: VITAL SIGNS: On exam, she is afebrile. Heart rate 73, respiratory rate is 18, oximetry is 92% on room air, blood pressure 150/74. LUNGS: Remarkable for end-expiratory wheezes. HEART: Regular rhythm. ABDOMEN: Soft. LABORATORY DATA: White count 10.8, hemoglobin 9.4, platelets 71,000. Electrolytes are normal. BUN 30, creatinine 1.18. IMPRESSION: 1. Pneumonia, community-acquired, clinically improved. 2. Asthma. 3. Acute on chronic renal dysfunction, improving. 4. Anemia and thrombocytopenia. 5. Atrial fibrillation. PLAN: 1. Omnicef 300 twice a day. 2. Prednisone 40 for four days, 20 for eight days, 10 mg for eight days. 3. She will follow up with me with a chest x-ray in 2 weeks. 4. Her lab work needs to be followed by her primary care provider. Job ID: [id number]
[2019-03-02] MEDS: Calcium Citrate 950 MG TAB PO SCH (11:11)
[2019-03-02] MEDS: Ferrous Sulfate 325 MG TAB PO SCH (11:11)
[2019-03-02] MEDS: Folic Acid 1 MG TAB PO SCH (11:11)
--- NOTE | 2019-03-02 15:24 | DIS ---
DATE OF ADMISSION: 02/27/2019 DATE OF DISCHARGE: 03/02/2019 DISCHARGE DIAGNOSES: Acute hypoxic respiratory failure secondary to pneumonia, acute asthma exacerbation, atrial fibrillation, anemia, chronic kidney disease, leukocytosis. CONSULTATIONS: Pulmonary with Dr. Rudy Nog. PROCEDURES: None. BRIEF HISTORY OF PRESENT ILLNESS: This is an 84-year-old female with a past medical history of asthma, who had presented to the emergency room with productive cough , fever, wheezing, shortness of breath. She was not on oxygen at home, but was requiring 2 L of oxygen in the ER. EKG showed nonspecific changes. A chest x- ray in the ER showed multifocal pneumonia. The patient was given IV ceftriaxone and azithromycin and admitted for further workup. HOSPITAL COURSE: Acute hypoxic respiratory failure secondary to multifocal pneumonia and asthma exacerbation: The patient had initially presented with a white blood cell count of 16.0. She received IV ceftriaxone and azithromycin. Her blood cultures were negative x2. Her flu swab was negative. She was eventually weaned off oxygen and maintained saturations of 96% on room air with physical therapy today. She was seen by Dr. Ngo from Pulmonary. He recommended the patient take Omnicef for an additional 10 days to complete a 2-week course of antibiotics. The patient was also prescribed azithromycin for 2 more days to complete a 5-day course. The patient was also discharged with a prednisone taper by Dr. Ngo for 40 mg for 4 days, 20 mg for 8 days, and 10 mg for 8 days. The patient will need to have a repeat chest x-ray done in 2 weeks and will follow up with Dr. Ngo at that time. She also needs to be followed up with her PCP in a week. The patient also takes Brovana and budesonide at home, which she was advised to continue. Anemia: The patient has a hemoglobin of 9.4/28.6. She denies any rectal bleeding. She was advised to have this followed up with her PCP as an outpatient. Chronic kidney disease: The patient presented with a creatinine of 1.21. It increased to 1.31 and came down to 1.18 on the day of discharge. UA was unremarkable. This can be followed up with her PCP as an outpatient. Atrial fibrillation: The patient will continue on her metoprolol, diltiazem, amiodarone, and Eliquis. DISCHARGE PHYSICAL EXAMINATION: VITAL SIGNS: Temperature 97.9, heart rate 73, respiratory rate 18, O2 saturation 92% on room air, blood pressure 150/24. GENERAL: The patient is alert, awake, oriented x3. CVS: Regular rate and rhythm with no murmurs, rubs, or gallops. LUNGS: The patient has scattered wheezing at the right base and mild crackles at the left base. ABDOMEN: Positive bowel sounds, soft, nontender, nondistended. EXTREMITIES: No edema. PERTINENT LABORATORY DATA: CBC on 03/02: White count 10.8, hemoglobin 9.4, hematocrit 28.6, platelet count of 216. BMP on 03/02: Showed creatinine is 1.18, which is improved from 1.21 on 02/28. Troponin I: 0.037, 0.021, 0.023. UA: Trace blood, otherwise unremarkable. PERTINENT IMAGING: Chest x-ray on 02/27: Shows scattered opacities concerning for multifocal infection. DISCHARGE CONDITION: Stable. ACTIVITY: As tolerated. DIET: Heart healthy diet. DISCHARGE MEDICATIONS: New prescriptions: Omnicef 300 mg p.o. b.i.d. for 10 days, azithromycin 250 mg daily for 2 more days, prednisone 40 mg for 4 days, 20 mg for eight days, 10 mg for eight days. Continue medications: 1. Brovana b.i.d. 2. Budesonide b.i.d. 3. Amiodarone 200 mg p.o. q.p.m. 4,. Vitamin D 2000 unit capsule daily 5. Calcium citrate 200 mg p.o. at 12 pm 6. Wellbutrin 150 mg p.o. at bedtime 7. Iron sulfate 325 mg p.o. at 12 pm 8. Folic acid 0.8 mg p.o. at 12 pm 9. Gabapentin 300 mg p.o. at bedtime, 10. Losartan 100 mg p.o. q.p.m 11. Metoprolol succinate 50 mg p.o. q.p.m 12. Mirabegron 50 mg p.o. q.a.m. 13. Protonix 40 mg p.o. q.a.m 14. Quetiapine 25 mg p.o. at bedtime 15. Simvastatin 20 mg p.o. q.p.m 16. Eliquis 5 mg p.o. b.i.d 17. Hydrocodone 7.5 mg/325 mg one tablet p.o. q.6 hours p.r.n. DISCHARGE INSTRUCTIONS: The patient is to follow up with her PCP in a week and Dr. Ngo in 2 weeks with a repeat chest x-ray. Job ID: [id number] MTDD
[2019-03-02] MEDS ORDERED: Cefdinir 300 MG CAP PO SCH (21:00)
--- NOTE | 2019-03-04 01:33 | PQF ---
[employer] Crystal Reports Winform Viewer BRANDI HOPSON KALEIGH ANETTE [id number] [facility] [id number] CLINICAL DOCUMENTATION CLARIFICATION FORM: POST DISCHARGE Addendum to original discharge summary date: ____ Late entry note date: __ DATE: 03/04/19 ATTN: Anette Saldana Please exercise your independent, professional judgment in responding to the clarification form. Clinical indicators are provided on the bottom of this form for your review Can you please further clarify if Sepsis is ruled in or ruled out? Sepsis [ ] Ruled in diagnosis [ ] Continue to treat [ ] Resolved [ X ] Ruled out diagnosis [ ] Cannot rule out diagnosis [ ] Other diagnosis [ ] Unable to determine In addition, please specify: Present on Admission (POA): [ ] Yes [ ] No [ ] Unable to determine For continuity of documentation, please document condition throughout progress notes and discharge summary. Thank You. CLINICAL INDICATORS - SIGNS / SYMPTOMS / LABS H and P pg.6- Sepsis due to pneumonia follow cultures H and P pg.5- Vital signs BP 127/60, NAP 82, pulse 62, Respi 19, Temp 99.2 H and P pg.6- Leukocytosis Consult Dr. Ngo pg.2- community acquired pneumonia Laboratory- WBC 16.0h, 13.1H ED Provide pg.4- aspiration pneumonia DS pg.1- presented to ER with productive cough, fever, wheezing shortness of breath DS pg.1- A chest X ray in ER showed multifocal pneumonia RISK FACTORS acute hypoxic respiratory failure- DS pg.1 Multifocal Pneumonia- DS pg.1 asthma exacerbation- DS pg.1 TREATMENTS IV ceftriaxone- DS pg.1 Azithromycin- DS pg.1 IV fluids- MAR Chest X ray 02/[address] Ngo 02/28 (This form is maintained as a part of the permanent medical record) 2014 [employer]. All Rights Reserved [email or web address] [not provided] MTDD
--- NOTE | 2019-03-04 03:37 | PQF ---
[employer] Equipment Operator Crystal Reports Winform Viewer BRANDI HOPSON ANETTE SALDANA [id number] [facility]-259 [id number] CLINICAL DOCUMENTATION CLARIFICATION FORM: POST DISCHARGE Addendum to original discharge summary date: ____ Late entry note date: __ DATE: 03/04/19 ATTN:Anette Saldana Please exercise your independent, professional judgment in responding to the clarification form. Clinical indicators are provided on the bottom of this form for your review Can you please further clarify the specificity of Pneumonia? Please check appropriate box(s): [ ] Aspiration Pneumonia [ ] Empirically treating Gram Negative Pneumonia [ ] Empirically treating Anaerobic Pneumonia [ ] Pneumonia secondary to (specify organism / underlying disease) [ X ] Simple Pneumonia (community acquired - nosocomial) [ ] Pneumonia of unknown etiology [ ] Other diagnosis [ ] Unable to determine In addition, please specify: Present on Admission (POA): [ ] Yes [ ] No [ ] Unable to determine For continuity of documentation, please document condition throughout progress notes and discharge summary. Thank You. CLINICAL INDICATORS - SIGNS / SYMPTOMS / LABS ED Provide pg.4- aspiration pneumonia DS pg.1- presented to ER with productive cough, fever, wheezing shortness of breath DS pg.1- A chest X ray in ER showed multifocal pneumonia H and P pg.5- Vital signs BP 127/60, NAP 82, pulse 62, Respi 19, Temp 99.2 H and P pg.6- Leukocytosis H and P pg.6- Sepsis due to pneumonia follow cultures Consult Dr. Ngo pg.2- community acquired pneumonia Laboratory- WBC 16.0h, 13.1H RISK FACTORS 84 years old- h AND p PG.1 acute hypoxic respiratory failure- DS pg.1 Multifocal Pneumonia- DS pg.1 asthma exacerbation- DS pg.1 TREATMENTS: IV ceftriaxone- DS pg.1 Azithromycin- DS pg.1 IV fluids- MAR Chest X ray 02/[address] Ngo 02/28 (This form is maintained as a part of the permanent medical record) 2014 [employer]. All Rights Reserved [email or web address] [not provided] MTDD
== END 2019-03-02 14:20 | disposition home or self-care (01) | DRG 193 ==
LOC: ERS 13:47 → 2NO 19:04 → T4-B 02-28 14:44
PROVIDERS: ADMIT Internal Medicine; ATTEND Internal Medicine
DX: J18.9 Pneumonia, unspecified organism (principal); J96.01 Acute respiratory failure with hypoxia; I21.A1 Myocardial infarction type 2; Y95 Nosocomial condition; J45.901 Unspecified asthma with (acute) exacerbation; D63.1 Anemia in chronic kidney disease; I48.91 Unspecified atrial fibrillation; F32.9 Major depressive disorder, single episode, unspecified; N18.3 Chronic kidney disease, stage 3 (moderate); D69.6 Thrombocytopenia, unspecified; I49.5 Sick sinus syndrome; F41.9 Anxiety disorder, unspecified; Z79.01 Long term (current) use of anticoagulants; Z95.0 Presence of cardiac pacemaker; Z88.5 Allergy status to narcotic agent; Z90.49 Acquired absence of other specified parts of digestive tract
CPT/HCPCS: 36415; 71046; 80048; 80053; 81003; 81015; 82553; 83605; 84484; 85025; 87040; 87804; 93005; 94640; 94760; 96365; 96367; J0456; J0696; J3490; J7512; J7620; J7626

== ENCOUNTER 2019-04-01 12:37 | Outpatient (CLI) | payer MEDICARE, BC ==
--- NOTE | 2019-04-01 13:56 | RAD ---
CHEST 2 VIEWS: HISTORY: Dyspnea. COMPARISON: 02/27/2019. FINDINGS: Heart size is within normal limits. Left ICD. No confluent pneumonia, overt edema, or pleural effus ion. There is improvement in appearance when compared to the 02/27/2019. IMPRESSION: Improved patchy interstitial and alveolar opacity when changes compared to the prior study. No signi ficant new process. POS: RICHELLE
== END 2019-04-01 12:38 | disposition home or self-care (01) ==
LOC: RAD 12:37
PROVIDERS: ATTEND Internal Medicine Critical Care Medicine
DX: R06.00 Dyspnea, unspecified (principal)
CPT/HCPCS: 71046

== ENCOUNTER 2019-11-04 09:00 | Outpatient (CLI) | payer MEDICARE, BC ==
--- NOTE | 2019-11-04 09:20 | RAD ---
EXAM: CHEST TWO VIEWS 11/04/2019 9:16 AM HISTORY: Dyspnea COMPARISON: February 27, 2021 view chest radiograph and April 01, 2019. FINDINGS: Lungs: There is bilateral interstitial edema that has worsened since the prior exam Heart: There is moderate cardiomegaly Pulmonary Vessels: There is [id number] pulmonary vascular congestion Costophrenic Angles: There are small bilateral pleural effusions Pneumothorax: None. Osseous Structures: Intact. Additional Findings: Dual-lead pacemaker is unchanged. IMPRESSION: Mild CHF
== END 2019-11-04 09:01 | disposition home or self-care (01) ==
LOC: BICRAD 09:00
PROVIDERS: ATTEND Internal Medicine Critical Care Medicine
DX: R06.00 Dyspnea, unspecified (principal); I50.9 Heart failure, unspecified
CPT/HCPCS: 71046

== ENCOUNTER 2019-11-17 13:34 | Inpatient (IN) | payer MEDICARE, BC, OTHER ==
[2019-11-17 14:08] LABS: #Eosinphils 0.1 thou/uL (0.0-0.7); #Lymphocytes 0.8 thou/uL (1.20-3.40); #Monocytes 0.6 thou/uL (0.11-0.59); #Neutrophils 4.6 thou/uL (1.40-6.50); %Basophils 0.5 % (0.0-1.0); %Eosinophils 1.6 % (0.0-10.0); %Lymphocytes 12.8 % (21.0-51.0); %Monocytes 10.2 % (0.0-10.0); Hemoglobin 11.8 g/dL (12.0-16.0); Mean Corpuscular HGB CONC 33.3 g/dL (32.0-36.0); Mean Corpuscular Hemoglobin 32.4 pg (27.0-31.0); Mean Corpuscular Volume 97.2 fL (78.0-98.0); Mean Platelet Volume 8.2 fL (7.4-10.4); Platelet Count 330 thou/uL (130-400); RBC Distribution Width 14.4 % (11.5-14.5); Red Blood Cell (RBC) Count 3.63 mill/uL (4.20-5.40); White Blood Cell (WBC) Count 6.1 thou/uL (4.8-10.8)
[2019-11-17 14:44] LABS: Bilirubin Negative (Negative); Blood, Urine Negative (Negative); Clarity Clear (Clear); Glucose, Urine (Dipstick) Normal (Negative); Ketone, Urine Negative (Negative); Leukocyte Negative Leu/uL (Negative); Nitrite Negative (Negative); Protein, Urine (Dipstick) 20 mg/dL (Neg-Trace); Specific Gravity, Urine 1.012 (1.002-1.036); Urobilinogen Normal mg/dL (Less than 2); pH, Urine 6.5 (5.0-9.0)
--- NOTE | 2019-11-17 15:07 | RAD ---
XR Chest 1 View Portable HISTORY: Dyspnea COMPARISON: 11/04/2019 FINDINGS: The heart is enlarged. Left-sided pacemaker device remains in place. The aorta is tortuous. A small left pleural effusion is again seen. No pneumothoraces are identified. No lobar consolidation or dorothy pulmonary edema is seen. IMPRESSION: Cardiomegaly with small left pleural effusion.
--- NOTE | 2019-11-17 17:08 | PDOC.HHP ---
Hospitalist HPI - History of Present Illness SOB History of Present Illness: PCP: Dr. Ma The patient is a poor historian, so the H&P was taken from her family member at bedside. The patient is an 84-year-old female with a past medical history significant for CHF with pacemaker, atrial fibrillation (on Eliquis), hypertension, hyperlipidemia and unknown lung condition (sees Dr. Ngo) that presents to the emergency department for the above complaint. Apparently, the patient has been experiencing a fast heart rate and heart palpitations since october. On 10/26, the patient had an appointment scheduled with Dr. Ardon, her opener verifier packer customs, who had her pacemaker interrogated and adjusted for her rapid rate. Then on 11/04 the patient had an echocardiogram which she was told was normal. At some point, the patient saw her filler room attendant, Dr. Ngo, he ordered a chest x-ray which showed she had "wet lungs". The patient was placed on Lasix for 3 days, with improvement of symptoms. Per her family, her heart rate was maintaining in the 80s and she was not feeling short of breath. Then on 11/08, her heart rate began to speed up, maintaining in the 110s. On 11/10, Dr. Ardon's office instructed her to start Lasix 20 mg daily, fluid restriction and low-sodium diet. Again, the patient symptoms improved. Then on 11/13, the patient had a low-grade fever 100.8F, felt SOB with general malaise. A call was placed to her PCP, Dr. Ma, who instructed her to increase her Lasix to 40 mg daily x3 days. Since the patient has had a fast heart rate and has generally not been feeling well and had some intermittent shortness of breath. She denies chest pain, swelling to her lower extremities, or lightheadedness. She denies any cough or wheezing. She denies any abdominal pain, nausea, vomiting, diarrhea. She has no urinary symptoms. She has had no sick contacts. ED Course: VITAL SIGNS SunNov 17, 2019 13:35 JERMAN Mario Denna BP: 96/77, Pulse: 116, Resp: 18, Temp: 97.8 (Oral), Pain: 0, O2 sat: 98 on (Room Air), Time: 11/17/2019 13:35. VITAL SIGNS SunNov 17, 2019 14:52 JERMAN Munoz, Amllory BP: 119/89, MAP: 99, Pulse: 114, Resp: 21, Temp: 97.9 (Oral), Pain: 0, O2 sat: 96 on (Room Air), Time: 11/17/2019 14:52. Medication administration: None Hospitalist ROS - Review of Systems Constitutional: reports: fever (100.8F on 11/13), malaise. denies: chills Respiratory: reports: shortness of breath, SOB with excertion. denies: cough, hemoptysis, sputum, wheezing Cardiovascular: reports: palpitations. denies: chest pain, edema, light headedness Gastrointestinal: denies: nausea, vomiting, abdominal pain, diarrhea, constipation, melena, hematochezia Genitourinary: denies: dysuria, hematuria Skin: denies: bruising Neurological: denies: incoordination, change in speech, confusion All other systems reviewed; all pertinent +/- noted in HPI/Subj - Medication Medications: diltiazem oral SunNov 17, 2019 14:03 JERMAN Carpenter Elizabeth CAPSULE, EXTENDED RELEASE : Strength - 180 mg : ORAL Patient Dose: 1 tab(s) Oral once a day. Eliquis SunNov 17, 2019 14:03 JERMAN Carpenter Elizabeth TABLET : Strength - 5 mg : ORAL Patient Dose: 1 tab(s) Oral 2 times a day. pantoprazole oral SunNov 17, 2019 14:03 JERMAN Carpenter Elizabeth TABLET, DELAYED RELEASE (ENTERIC COATED) : Strength - 40 mg : ORAL Patient Dose: 1 tab(s) Oral once a day. calcium citrate-vitamin D3 SunNov 17, 2019 14:03 JERMAN Carpenter Elizabeth TABLET : Strength - 200 mg calcium-200 unit : ORAL Patient Dose: 1 tab(s) Oral once a day.AT NOON. furosemide oral SunNov 17, 2019 14:04 JERMAN Carpenter Elizabeth tablet : Strength - 40 mg : ORAL Patient Dose: 20 mg Oral once a day. gabapentin SunNov 17, 2019 14:05 JERMAN Carpenter Elizabeth capsule : Strength - 300 mg : ORAL Patient Dose: 300 mg Oral 2 times a day. amiodarone oral SunNov 17, 2019 14:05 JERMAN Carpenter Elizabeth tablet : Strength - 200 mg : ORAL Patient Dose: 200 mg Oral q hs. simvastatin SunNov 17, 2019 14:05 JERMAN Carpenter Elizabeth tablet : Strength - 20 mg : ORAL Patient Dose: 20 mg Oral once q hs. metoprolol Succ. oral SunNov 17, 2019 14:06 JERMAN Carpenter Elizabeth tablet : Strength - 50 mg : ORAL Patient Dose: 50 mg Oral q hs. QUEtiapine SunNov 17, 2019 14:06 JERMAN Carpenter Elizabeth tablet : Strength - 25 mg : ORAL Patient Dose: 25 mg Oral q hs. Myrbetriq SunNov 17, 2019 14:06 JERMAN Carpenter Elizabeth tablet extended release 24 hr : Strength - 50 mg : ORAL Patient Dose: 50 mg Oral q hs.. buPROPion HCl SunNov 17, 2019 14:07 JERMAN Carpenter Elizabeth tablet extended release 24 hr : Strength - 150 mg : ORAL Patient Dose: 150 mg Oral q hs. Allergies: codeine, iodine Hospitalist History - Past Medical History Source: patient, RN notes reviewed Cardiac: reports: AFIB (Eliquis), CHF, HTN, Hyperlipidemia Gastrointestinal: reports: GERD Psych: reports: Depression - Past Surgical History Past Surgical History: reports: Appendectomy, Total Hip Replacement (right), O ther (PM, left knee sx, carpal tunnel) - Social History Smoking Status: Never smoker Alcohol: reports: None Drugs: reports: none Living Situation: Alone Occupation: does not work Activity level: independent ambulation - Exam General Appearance: NAD, awake alert. negative: ill appearing General - other findings: Uncomfortable appearing Eye: anicteric sclera ENT: normocephalic atraumatic Neck: supple, symmetric, no JVD Heart: RRR, no murmur, no gallops, no rubs, normal peripheral pulses Respiratory: no rales, no ronchi. negative: no wheezes, no tachypnea Gastrointestinal: soft, non-tender, non-distended, normal bowel sounds, no bruit, no guarding, no rigidity Extremities: no cyanosis, no edema Skin: no rashes Neurological: no weakness, no focal deficits Musculoskeletal: normal tone, normal strength Psychiatric: normal affect, A&O x 3 Hospitalist Results - Labs Result Diagrams: 11/17/19 13:59 11/17/19 17:16 Lab results: WBC 6.1 thou/uL (4.8-10.8) 11/17/19 13:59 Hgb 11.8 g/dL (12.0-16.0) L 11/17/19 13:59 Hct 35.3 % (36.0-47.0) L 11/17/19 13:59 MCV 97.2 fL (78.0-98.0) 11/17/19 13:59 Plt Count 330 thou/uL (130-400) 11/17/19 13:59 Neutrophils % 75.0 % (42.0-75.0) 11/17/19 13:59 Creatine Kinase 74 U/L (29-168) 11/17/19 13:59 Troponin I 0.022 ng/mL (< 0.028) 11/17/19 13:58 B-Natriuretic Peptide 1090.2 pg/mL (0-100) H 11/17/19 13:59 Urine Ketones Negative mg/dL (Negative) 11/17/19 14:10 Urine Blood Negative (Negative) 11/17/19 14:10 Urine Nitrite Negative (Negative) 11/17/19 14:10 Ur Leukocyte Esterase Negative Sintia/uL (Negative) 11/17/19 14:10 - EKG Interpretation EKG: EKG demonstrates ventricularly paced rhythm with a rate of 116, QRS of 188, QTc of 656, cures axis -80 with wide complex ventricular rhythm due to ventricular pacing, normal ST segments. Normal T waves and ST segments normal. Nonspecific EKG. - Radiology Interpretation Chest x-ray Status: report reviewed by me Additional Comment: IMPRESSION: Cardiomegaly with small left pleural effusion. Hospitalist H&P A/P - Problem (1) CHF exacerbation Code(s): I50.9 - HEART FAILURE, UNSPECIFIED Status: Acute (2) Pleural effusion, left Code(s): J90 - PLEURAL EFFUSION, NOT ELSEWHERE CLASSIFIED Status: Acute (3) Fever Code(s): R50.9 - FEVER, UNSPECIFIED Status: Resolved (4) A-fib Code(s): I48.91 - UNSPECIFIED ATRIAL FIBRILLATION Status: Chronic (5) Hypertension Code(s): I10 - ESSENTIAL (PRIMARY) HYPERTENSION Status: Chronic (6) Hyperlipidemia Code(s): E78.5 - HYPERLIPIDEMIA, UNSPECIFIED Status: Chronic - Plan Plan: 84/F with PMH CHF, A. fib, hypertension, hyperlipidemia presents for fast heart rate and shortness of breath. Admit telemetry floor, inpatient status. Expected length of stay greater than 2 midnights. Presented borderline hypotensive, tachycardic, with normal RR, SPO2, afebrile. EKG wide-complex tachycardia, HR 116, V paced, no ST elevations. CXR cardiomegaly with left pleural effusion Troponin 0.022, BNP 1090 Pacemaker interrogated in the ED #CHF exacerbation Lasix IVP, DW, Na restriction, cardiac rehab Consult cardiology Trend troponin, check TSH, mag, flu and coronavirus Continue home dose metoprolol. #Left pleural effusion Likely related to problem 1. Patient in no respiratory distress upon examination. #Fever Reported Tmax 100.8F on 11/13. Presented afebrile. Check COVID and influenza. #A. fib Chronic. Anticoagulated on Eliquis at home. Continue Eliquis. Continue home dose amiodarone, diltiazem, metoprolol. #Hypertension Patient presented borderline hypotensive. Upon assessment, BP improved. Continue to monitor BP. #Hyperlipidemia Takes simvastatin at home. Restart home dose simvastatin. Order FLP. No DVT prophylaxis. Protonix for GI prophylaxis. Full code. Discussed case with Dr. Hernandes.
[2019-11-17] MEDS ORDERED: Furosemide 40 MG/4 ML VIAL ONE (17:12)
[2019-11-17 17:48] LABS: ALT (SGPT) 19 U/L (8-55); AST (SGOT) 18 U/L (5-34); Albumin 3.8 g/dL (3.4-4.8); Alkaline Phosphatase 83 U/L (40-110); Anion Gap 16 mmol/L (10-20); BUN (Urea Nitrogen) 29 mg/dL (9.8-20.1); Bilirubin, Total 0.4 mg/dL (0.2-1.2); Calc. Creatinine Clearance 0 mL/min (70-130); Carbon Dioxide 27 mmol/L (23-31); Chloride 100 mmol/L (98-107); Estimated GFR-MDRD 25; Glucose 100 mg/dL (83-110); Magnesium 2.3 mg/dL (1.6-2.6); Potassium 3.7 mmol/L (3.5-5.1); Protein, Total 6.8 g/dL (6.0-8.3); Sodium 139 mmol/L (136-145)
[2019-11-17 19:14] LABS: Troponin I 0.017 ng/mL (< 0.028)
[2019-11-17 20:37] VITALS: BMI 27.1
[2019-11-17] MEDS ORDERED: Apixaban 2.5 MG TAB PO SCH (21:00)
[2019-11-17] MEDS ORDERED: Gabapentin 300 MG CAP PO SCH (21:00)
[2019-11-17] MEDS ORDERED: Acetaminophen 325 MG TAB PO PRN (21:16)
[2019-11-17] MEDS: Bupropion 150 MG XL TAB PO SCH (22:59)
[2019-11-17] MEDS: Gabapentin 300 MG CAP PO SCH (22:59)
[2019-11-17] MEDS: Amiodarone 200 MG TAB PO SCH (22:59)
[2019-11-17] MEDS: Atorvastatin Calcium 10 MG TAB PO SCH (22:59)
[2019-11-18 04:47] LABS: Chloride 103 mmol/L (98-107); Potassium 3.5 mmol/L (3.5-5.1); Sodium 139 mmol/L (136-145); Triglycerides 65 mg/dL (Less than 150)
[2019-11-18 04:58] LABS: BUN (Urea Nitrogen) 25 mg/dL (9.8-20.1); Calc. Creatinine Clearance 30 mL/min (70-130); Calcium 8.6 mg/dL (7.8-10.44); Carbon Dioxide 22 mmol/L (23-31); Cardiac Risk 2.4 (Less than 4.5); Cholesterol 91 mg/dl (< 200 Desired); Estimated GFR-MDRD 28; Glucose 82 mg/dL (83-110); HDL Cholesterol 38 mg/dL (>60 Neg Risk)
[2019-11-18 04:59] LABS: Anion Gap 20 mmol/L (10-20)
[2019-11-18 05:03] LABS: LDL Cholesterol, Calculated 41 mg/dL
[2019-11-18 05:16] LABS: Band 2 % (5-11); Hypochromia SLIGHT = 6-15 cells (100X) (0-5/hpf); Lymphocytes 21 % (21-51); MDiff Complete? YES; Mean Corpuscular HGB CONC 32.8 g/dL (32.0-36.0); Mean Corpuscular Hemoglobin 32.2 pg (27.0-31.0); Mean Corpuscular Volume 98.1 fL (78.0-98.0); Mean Platelet Volume 8.2 fL (7.4-10.4); Monocytes 13 % (0-10); Neutrophil 64 % (42-75); Platelet Count 285 thou/uL (130-400); Platelet Morphology Comment Appears Adequate; RBC Distribution Width 14.3 % (11.5-14.5); Red Blood Cell (RBC) Count 3.42 mill/uL (4.20-5.40); White Blood Cell (WBC) Count 5.1 thou/uL (4.8-10.8)
[2019-11-18] MEDS: Furosemide 40 MG/4 ML VIAL SLOW IVP SCH ×2 (05:19→14:32)
[2019-11-18] MEDS: Gabapentin 300 MG CAP PO SCH ×2 (08:49→21:15)
[2019-11-18] MEDS ORDERED: Enoxaparin Sodium 80 MG/0.8 ML SYRINGE SC SCH (09:00)
[2019-11-18] MEDS ORDERED: FLU VACC QS2020-21(65YR UP)/PF 240 MCG/0.7 ML SYRINGE IM ONE (09:00)
--- NOTE | 2019-11-18 10:37 | CON ---
DATE OF CONSULTATION: HISTORY OF PRESENT ILLNESS: Meghan Saldana is a pleasant 84-year-old white female, who was evaluated by Dr. Khanna in 1999. She got up to go to the bathroom at night, became lightheaded and passed out. It was felt this was probably orthostatic in nature. She underwent stress testing. We have found Cardiolite, which revealed no evidence of ischemia and an ejection fraction of 71%. I saw her in consultation in January 2010 when she had sudden onset of "not feeling right." She tried to walk, but was going from [id number], hitting the duvall. She felt like the room was spinning. This lasted for approximately 2 hours. In the emergency room, she was found to have atrial fibrillation, which was apparently of new onset. CT of the head was done, which was normal. Carotid Doppler revealed 50% to 69% stenosis in the left internal carotid artery. She denied any previous palpitations or chest discomfort. She previously was on Aggrenox for a TIA and that was stopped. She was placed on Coumadin and Multaq 400 mg b.i.d. and ultimately she converted to sinus rhythm. She was followed in the office after that. In June 2012, she was found to be in atrial flutter at Dr. Ma's office and was placed on Cardizem and returned back to normal sinus rhythm. She did well until July 2015 when she presented for followup and stated that she could no longer pay for Multaq, that was discontinued and two weeks later, she was started on propafenone 150 t.i.d. In September 2016, she was doing well and remained in sinus rhythm. The family then called stating that she had a syncopal spell in February 2016. She was placed on a 30-day monitor. She did not initiate recording any episodes, although she states she had episodes of extreme fatigue and lightheadedness. On the monitor, she did have episodes of junctional bradycardia with rates in the 30s as well as episodes of atrial fibrillation. She was then seen in the office on May 11, 2016 and was recommended that pacemaker be placed and risks of this were discussed. However, she was uncertain if she wish to proceed with that. She then had an episode on May 14, 2016 when she became so weak that her daughter had to help her and eased her to the floor. Blood pressure was 70 systolic. Heart rate was uncertain. Paramedics arrived. Her blood pressure was 80 systolic. When she arrived here, she was in atrial fibrillation. With her sick sinus syndrome with heart rates in the 30s as well as paroxysmal atrial fibrillation, it was again recommended that a pacemaker lead be placed. A dual-chamber Medtronic pacemaker was then placed on May 18, 2016. She was discharged on Eliquis for her paroxysmal atrial fibrillation. She also was started on amiodarone during that hospitalization since she appeared to have failed propafenone. She has continued to be followed in the office. She has continued to have episodes of atrial fibrillation, although she has not had much over the last year and a half. In August 2017, she had 2-3 days of atrial fibrillation. Her last significant atrial fibrillation was in December 2017. Her creatinine consistently was greater than 1.5 and her Eliquis was reduced to 2.5 mg b.i.d. In July 2019, she was doing well. Then, daughter called in October stating that her heart rate was elevated and she was short of breath. She was seen in the office on October 30 and it was found that she was having increased ventricular pacing, which has increased from 0.6% to 5.6% with significant increase in ventricular pacing recently. Her AV delay was reprogramed to 250 milliseconds. Echocardiogram was performed, which revealed ejection fraction of 55% to 60% with pacing wire in the right ventricle, mild left atrial enlargement, aortic valve sclerosis, mild mitral regurgitation, and mild tricuspid regurgitation. She then saw Dr. Ngo for routine followup and chest x-ray revealed that she was in mild heart failure and was placed on furosemide daily for 3 days. On November 08, the heart rate started to again increase. She continued to have shortness of breath and her furosemide was increased to 40 mg daily for 3 days. She again had a fast heart rate, was not feeling well and overall is recommended that she go to the emergency room for further evaluation. She denies any chest pain or lightheadedness. PAST MEDICAL HISTORY: Hypertension, history of right retinal artery occlusion, reactive airway disease, hypercholesterolemia, history of atrial flutter in 2012, negative Cardiolite in January 2010 and August 2012, paroxysmal atrial fibrillation, hypertension, and osteoarthritis. OPERATIONS: Tubal ligation, knee replacement, hip surgery, back surgery, appendectomy, and carpal tunnel surgery. SOCIAL HISTORY: She has never smoked and does not drink. MEDICATIONS: When she was last seen in the office, 1. Gabapentin 300 mg at bedtime. 2. Protonix 40 daily. 3. DuoNeb b.i.d. 4. Brovana nebs. 5. Folic acid 800 mcg daily. 6. Iron 325 daily. 7. Calcium citrate plus vitamin D. 8. Bupropion 150 mg daily. 9. Diltiazem 180 daily. 10. Eliquis 2.5 mg daily. 11. Metoprolol 50 daily. 12. Amiodarone 200 mg daily. 13. Simvastatin 20 mg daily. ALLERGIES: CODEINE. IODINE. SHE DOES NOT RECALL WHAT TYPE OF REACTION SHE HAD, BUT DOES RECALL THAT WITH SOME TYPE OF TEST, SHE WAS GIVEN MEDICINES TO TAKE BEFOREHAND. REVIEW OF SYSTEMS: A 10-point review of systems is otherwise unremarkable. PHYSICAL EXAMINATION: VITAL SIGNS: Blood pressure 133/73 and pulse 69. HEENT: PERRL. NECK: Supple. CHEST: Clear. CARDIAC: S1 and S2 normal without any S3, S4, or murmurs. ABDOMEN: Normal bowel sounds without tenderness. EXTREMITIES: Revealed no clubbing, cyanosis, or edema. NEUROLOGIC: Grossly intact. SKIN: Warm and dry. LABORATORY DATA: EKG reveals atrial sensing with sinus tachycardia and ventricular pacing with very wide QRS. Hemoglobin 11.0, hematocrit 33.5, platelets 285,000. Sodium 139, potassium 3.5, chloride 103, carbon dioxide 22, BUN 25, creatinine 1.73, cholesterol 91, triglycerides 65, HDL 38, LDL 41. Cardiac enzymes are unremarkable. TSH is normal. BNP 1090.2. IMPRESSION: 1. Increased shortness of breath. The one thing that has been noted is that she has had significant increased ventricular pacing. Since her device was reprogramed on October 30, she has been ventricularly pacing 65% of the time and throughout her hospitalization, has been ventricularly paced. Certainly, her shortness of breath may be due to left ventricular dysfunction with ventricular pacing. The other possibility is that this may be related to coronary artery disease. Her ejection fraction when she was not ventricularly paced two weeks ago was 55% to 60%. 2. Status post dual-chamber pacemaker placement. 3. Paroxysmal atrial fibrillation, which has been fairly quiet since December 2017. Her Eliquis dose was reduced due to elevated creatinine at times. History of transient ischemic attack and history of right retinal artery occlusion. 4. Hypertension under good control. 5. Hypercholesterolemia under good control. 6. History of lung nodules. 7. Allergy to iodine, although she does not recall what her reaction was, she was premedicated prior to a radiological study. 8. Chronic kidney disease. PLAN: Eliquis will be discontinued and instead, she will be transitioned to Lovenox in case some type of invasive procedure is needed. Echocardiogram will be performed with her ventricularly pacing to reassess left ventricular function while she is ventricularly paced. Also, she will undergo adenosine Cardiolite testing to evaluate for possible coronary artery disease. She states that with diuresis, her breathing has significantly improved. Job ID: [id number] [facility] [facility]
[2019-11-18] MEDS ORDERED: ADENOSINE 60 MG/20 ML VIAL ONE (13:18)
--- NOTE | 2019-11-18 14:25 | NM ---
EXAM: CARDIAC SPECT HISTORY: Shortness of breath, atrial fibrillation, hypertension, dyslipidemia, CHF TECHNIQUE: A myocardial perfusion scan was performed using the single isotope 1 day protocol with maranda hnetium 99m sestamibi. [10 mCi] was injected intravenously for the rest exam followed by 30 mCi for the stress study. Pharmacologic stress with adenosine was monitored and interpreted by Dr. Henderson FINDINGS: Homogeneous tracer distribution is seen in the myocardial segments on stress and rest image s without fixed or reversible defects. Gated SPECT LVEF: 76% Wall motion exam: Normal IMPRESSION: Normal myocardial perfusion scan
[2019-11-18] MEDS: Ferrous Sulfate 325 MG TAB PO SCH (14:32)
--- NOTE | 2019-11-18 15:22 | PDOC.HOSPP ---
- Subjective Encounter Date: 11/18/19 Encounter Time: 15:15 Subjective: f/u for CHF, dyspnea treated with Lasix IV. Overall feels ok. Completed DIRECTOR OF CONSUMER AFFAIRS with negative results. - Objective Vital Signs & Weight: Vital Signs (12 hours) Temp Pulse Resp BP Pulse Ox 11/18/19 14:40 97.9 F 72 20 131/67 95 11/18/19 06:56 98.1 F 69 21 H 133/73 93 L 11/18/19 03:58 97.8 F 82 15 123/71 93 L Weight Weight 173 lb 3.2 oz I&O: 11/17/19 11/18/19 11/19/19 06:59 06:59 06:59 Intake Total 130 Output Total 825 Balance -695 Result Diagrams: 11/18/19 04:09 11/18/19 04:09 Additional Labs: Microbiology 11/17/19 22:33 Nasal swab Influenza Types A,B Direct EIA - Final Laboratory Tests 05/14/16 05/14/16 05/14/16 17:28 17:29 17:29 Hgb INR 4.1 H* Potassium 3.1 L Carbon Dioxide BUN Creatinine 1.39 H Estimated GFR (MDRD) Troponin I B-Natriuretic Peptide 237.9 H Triglycerides Cholesterol LDL Cholesterol, Calc HDL Cholesterol TSH 3rd Generation 05/14/16 05/14/16 05/14/16 17:29 17:29 20:17 Hgb 10.5 L INR Potassium Carbon Dioxide BUN Creatinine Estimated GFR (MDRD) Troponin I 0.023 0.013 B-Natriuretic Peptide Triglycerides Cholesterol LDL Cholesterol, Calc HDL Cholesterol TSH 3rd Generation 05/14/16 05/15/16 05/15/16 23:11 04:15 04:15 Hgb INR 4.0 Potassium 3.4 L Carbon Dioxide BUN Creatinine 1.05 Estimated GFR (MDRD) 50 Troponin I 0.026 B-Natriuretic Peptide Triglycerides Cholesterol LDL Cholesterol, Calc HDL Cholesterol TSH 3rd Generation 05/16/16 05/16/16 11/17/19 04:10 04:10 13:59 Hgb INR 3.0 Potassium Carbon Dioxide BUN Creatinine Estimated GFR (MDRD) 62 Troponin I B-Natriuretic Peptide 1090.2 H Triglycerides Cholesterol LDL Cholesterol, Calc HDL Cholesterol TSH 3rd Generation 11/17/19 11/17/19 11/17/19 13:59 17:16 18:33 Hgb 11.8 L INR Potassium Carbon Dioxide 27 BUN 29 H Creatinine 1.90 H Estimated GFR (MDRD) Troponin I B-Natriuretic Peptide Triglycerides Cholesterol LDL Cholesterol, Calc HDL Cholesterol TSH 3rd Generation 2.1559 11/18/19 04:09 Hgb INR Potassium Carbon Dioxide BUN Creatinine Estimated GFR (MDRD) Troponin I B-Natriuretic Peptide Triglycerides 65 Cholesterol 91 LDL Cholesterol, Calc 41 HDL Cholesterol 38 TSH 3rd Generation Radiology Reviewed by me: Yes (DIRECTOR OF CONSUMER AFFAIRS - neg for ischemia, EF 76%) EKG Reviewed by me: Yes (Tele - V-pacing) Hospitalist ROS - Medication Medications: Active Medications Generic Name Dose Route Start Last Admin Trade Name Freq PRN Reason Stop Dose Admin Acetaminophen 650 mg 11/17/19 21:16 11/17/19 23:00 Acetaminophen 325 Mg Tab PO 650 mg Q6H PRN Administration Fever/Mild Pain Amiodarone HCl 200 mg 11/17/19 21:00 11/17/19 22:59 Amiodarone 200 Mg Tab PO 200 mg QPM BRUNILDA Administration Atorvastatin Calcium 10 mg 11/17/19 21:00 11/17/19 22:59 Atorvastatin Calcium 10 Mg Tab PO 10 mg QPM BRUNILDA Administration Bupropion HCl 150 mg 11/17/19 21:00 11/17/19 22:59 Bupropion 150 Mg Xl Tab PO 150 mg HS BRUNILDA Administration Diltiazem HCl 180 mg 11/18/19 09:00 11/18/19 08:49 Diltiazem Hcl Cd 180 Mg Capsule PO 180 mg QAM BRUNILDA Administration Enoxaparin Sodium 80 mg 11/18/19 09:00 11/18/19 08:49 Enoxaparin Sodium 80 Mg/0.8 Ml Syringe SC 80 mg 0900,2100 BRUNILDA Administration Ferrous Sulfate 325 mg 11/18/19 12:00 11/18/19 14:32 Ferrous Sulfate 325 Mg Tab PO 325 mg 1200 BRUNILDA Administration Furosemide 40 mg 11/18/19 06:00 11/18/19 14:32 Furosemide 40 Mg/4 Ml Vial SLOW IVP 40 mg 0600,1400 BRUNILDA Administration Gabapentin 300 mg 11/17/19 21:00 11/18/19 08:49 Gabapentin 300 Mg Cap PO 300 mg BID BRUNILDA Administration Metoprolol Succinate 50 mg 11/17/19 21:00 11/17/19 23:00 Metoprolol Succinate Xl 50 Mg Tab PO 50 mg HS BRUNILDA Administration Pantoprazole Sodium 40 mg 11/18/19 09:00 11/18/19 08:49 Pantoprazole 40 Mg Tab PO 40 mg QAM BRUNILDA Administration - Exam General Appearance: NAD, awake alert Eye: PERRL, anicteric sclera ENT: normocephalic atraumatic, no oropharyngeal lesions Neck: supple, symmetric, no JVD, no thyromegaly, no lymphadenopathy Heart: no gallops, no rubs, normal peripheral pulses, irregular Heart - other findings: S1, S2 Respiratory: no wheezes, no tachypnea Respiratory - other findings: diminished in bases Gastrointestinal: soft, non-tender, non-distended, normal bowel sounds, no palpable masses Extremities: no cyanosis, no clubbing, 1+ LE edema Skin: normal turgor, no lesions Neurological: cranial nerve grossly intact, no new deficit Musculoskeletal: normal tone, generalized weakness Psychiatric: normal affect, A&O x 3 Hosp A/P (1) Acute CHF (congestive heart failure) Code(s): I50.9 - HEART FAILURE, UNSPECIFIED Status: Acute Qualifiers: Heart failure type: unspecified Qualified Code(s): I50.9 - Heart failure, unspecified Plan: Continue Lasix 40mg IV BID, 2D echo pending, continue med mgmt, DIRECTOR OF CONSUMER AFFAIRS negative currently (2) A-fib Code(s): I48.91 - UNSPECIFIED ATRIAL FIBRILLATION Status: Chronic Qualifiers: Atrial fibrillation type: paroxysmal Qualified Code(s): I48.0 - Paroxysmal atrial fibrillation Plan: Stable currently, V-pacing with normal functioning PM device, resume Eliquis (3) Hypertension Code(s): I10 - ESSENTIAL (PRIMARY) HYPERTENSION Status: Chronic Qualifiers: Hypertension type: essential hypertension Qualified Code(s): I10 - Essential (primary) hypertension (4) Acute kidney injury superimposed on CKD Code(s): N17.9 - ACUTE KIDNEY FAILURE, UNSPECIFIED; N18.9 - CHRONIC KIDNEY DISEASE, UNSPECIFIED Status: Acute Plan: Improved, avoid nephrotoxic meds and limit contrast exposure - Plan plan discussed w/ family, PT/OT, social worker aide, out of bed/ambulate, DVT proph w/SCDs Stable currently [facility] OF CON[employer] AFFA[facility] negative initially 2D echo pending Continue Lasix 40mg IV BID Resume Eliquis AM lab: BMP, H/H
[2019-11-18] MEDS ORDERED: HYDROcodone/Acetaminophen 7.5/325 mg Tablet PO PRN (15:43)
[2019-11-18 16:28] LABS: SARS-CoV-2 MS2 Positive; SARS-CoV-2 N Gene Negative; SARS-CoV-2 S Gene Negative; SARS-CoV-2 by NAA Not Detected (NotDetected); SARS-CoV-2 orf1ab Negative
[2019-11-18] MEDS: Amiodarone 200 MG TAB PO SCH (21:15)
[2019-11-18] MEDS: Atorvastatin Calcium 10 MG TAB PO SCH (21:15)
[2019-11-18] MEDS: Bupropion 150 MG XL TAB PO SCH (21:16)
[2019-11-18] MEDS: Apixaban 2.5 MG TAB PO SCH (21:16)
[2019-11-19 04:40] LABS: Anion Gap 12 mmol/L (10-20); BUN (Urea Nitrogen) 27 mg/dL (9.8-20.1); Calc. Creatinine Clearance 29 mL/min (70-130); Calcium 8.6 mg/dL (7.8-10.44); Carbon Dioxide 32 mmol/L (23-31); Chloride 100 mmol/L (98-107); Estimated GFR-MDRD 27; Glucose 97 mg/dL (83-110); Sodium 141 mmol/L (136-145)
[2019-11-19 04:44] LABS: Potassium 2.9 mmol/L (3.5-5.1)
[2019-11-19] MEDS ORDERED: Potassium Chloride 40 MEQ in Sodium Chloride 0.9% 250 ML 250 ML IVPB SCH (05:45)
[2019-11-19] MEDS: Furosemide 40 MG/4 ML VIAL SLOW IVP SCH ×2 (06:13→14:26)
[2019-11-19] MEDS ORDERED: Zinc Sulfate 220 MG CAP PO SCH (09:00)
[2019-11-19] MEDS: Gabapentin 300 MG CAP PO SCH (10:02)
[2019-11-19] MEDS: Apixaban 2.5 MG TAB PO SCH (10:02)
[2019-11-19] MEDS: Ferrous Sulfate 325 MG TAB PO SCH (12:43)
[2019-11-19 18:15] VITALS: BP 134/80; TEMP 98.5
--- NOTE | 2019-11-20 03:26 | DIS ---
DATE OF ADMISSION: 11/17/2019 DATE OF DISCHARGE: 11/19/2019 DISCHARGE DIAGNOSES: 1. Acute diastolic congestive heart failure exacerbation with preserved ejection fraction of 55% to 60%. 2. Atrial tachyarrhythmia, resolved. 3. Hypertension, stable. 4. Acute kidney injury on chronic kidney disease, improved. 5. Hypokalemia. CONSULTATIONS: Dr. Filippo Ardon with Cardiology Service. PERTINENT LABORATORY AND X-RAY FINDINGS: Potassium ranged between 2.9 to 3.7. Creatinine ranged between 1.73-1.90. Estimated GFR ranged between 25-28. Troponin I negative x3. BNP 1090, previously noted 238 on 05/14/2016. Total cholesterol 91, triglycerides 65, HDL 38, LDL 41, TSH 2.16. CBC showed a hemoglobin ranging between 11.0 to 11.8. COVID-19 PCR not detected, 11/17/2019. Influenza A and B antigen negative, 11/17/2019. Portable chest x-ray dated 11/17/2019, showed cardiomegaly with small pleural effusion. Cardiolite stress test dated 11/18/2019, showed no evidence for reversible or fixed ischemia with calculated ejection fraction of 76%. 2D transthoracic echocardiogram dated 11/18/2019, showed ejection fraction of 55% to 60%. Mild left atrial enlargement. Moderate mitral regurgitation. Mild tricuspid and pulmonic regurgitation. HOSPITAL COURSE: The patient was initially admitted after presenting with increased shortness of breath in the context of known paroxysmal atrial fibrillation, on chronic anticoagulation with Eliquis. Chest imaging showed evidence of mild pulmonary vascular prominence and the patient was treated for an acute CHF exacerbation with IV Lasix. The patient was evaluated by the Cardiology Service after EKG on admission showed a wide-complex tachycardia with heart rates in mid 115s. The patient was also noted with atrial tachycardia with plans to undergo a cardioversion on 11/19/2019. The patient apparently had spontaneous resolution and began ventricular pacing appropriately without need for proceeding with this procedure. The patient continued on amiodarone, diltiazem, and metoprolol and was resumed on anticoagulation with Eliquis. Overall, the patient did remain clinically stable during the hospital course with stable vital signs. I have examined the patient at the time of discharge and discussed followup instructions. The patient verbalizes understanding and agreement and ready for discharge, 11/19/2019. DISCHARGE MEDICATIONS: 1. Bupropion XL 150 mg p.o. at bedtime. 2. Calcium citrate 200 mg p.o. daily. 3. Cardizem CD 180 mg p.o. q.a.m. 4. Amiodarone 200 mg p.o. at bedtime. 5. Folic acid 0.8 mg p.o. daily. 6. Lasix 40 mg p.o. daily. 7. Zinc acetate 50 mg p.o. daily. 8. Metoprolol succinate 50 mg p.o. at bedtime. 9. Myrbetriq 50 mg p.o. q.a.m. 10. Gabapentin 300 mg p.o. at bedtime. 11. Ravenel 7.5/325 mg one tablet p.o. q.6 hours p.r.n. pain. 12. Protonix 40 mg p.o. daily. 13. Seroquel 25 mg p.o. at bedtime. 14. Vitamin D3 at 2000 units p.o. daily. 15. Zocor 20 mg p.o. at bedtime. 16. Eliquis 2.5 mg p.o. b.i.d. FOLLOWUP: The patient is to follow up with Dr. Keith Ma within 7 days of discharge. The patient will follow up with Dr. Filippo Ardon with Cardiology Service. CONDITION ON DISCHARGE: Stable. ACTIVITY: Ad-luis antonio. DIET: Heart healthy. CODE STATUS: Full. DISPOSITION: To home, 11/19/2019. TIME SPENT WITH PATIENT: Total time preparing and coordinating discharge, 35 minutes. Job ID: [id number]
--- NOTE | 2019-11-20 07:10 | EKG ---
Test Reason : Blood Pressure : / mmHG Vent. Rate : 062 BPM Atrial Rate : 062 BPM P-R Int : 178 ms QRS Dur : 092 ms QT Int : 586 ms P-R-T Axes : 045 091 262 degrees QTc Int : 594 ms Normal sinus rhythm Rightward axis Prolonged QT Abnormal ECG When compared with ECG of 17-NOV-2019 13:54, (Unconfirmed) Sinus rhythm has replaced Electronic ventricular pacemaker Vent. rate has decreased BY [address] Celina SHANKAR (3) on 11/20/2019 7:09:39 AM Referred By: Confirmed By:DR. Celina SHANKAR
--- NOTE | 2019-11-20 07:14 | EKG ---
Test Reason : Blood Pressure : / mmHG Vent. Rate : 062 BPM Atrial Rate : 062 BPM P-R Int : 142 ms QRS Dur : 092 ms QT Int : 522 ms P-R-T Axes : 253 050 264 degrees QTc Int : 529 ms Unusual P axis, possible ectopic atrial rhythm Prolonged QT Abnormal ECG When compared with ECG of 18-NOV-2019 15:55, (Unconfirmed) Ectopic atrial rhythm has replaced Sinus rhythm QT has shortened Confirmed by DR. Celina SHANKAR (3) on 11/20/2019 7:14:27 AM Referred By: VIVIAN Confirmed By:DR. Celina SHANKAR
[2019-11-20] MEDS ORDERED: Furosemide 40 MG TAB PO SCH (07:30)
--- NOTE | 2019-11-21 06:24 | PQF ---
CLINICAL DOCUMENTATION CLARIFICATION FORM: Dear : Ho Rodriguez Date / Time: 11/21/19 0623 Please exercise your independent, professional judgment in responding to the clarification form. Clinical indicators are provided on the bottom of this form for your review Please check appropriate box(es): ACUTE CONGESTIVE HEART FAILURE: TYPE: [ ] Systolic / HFrEF [ x ] Diastolic / HFpEF [ ] Combined Systolic / Diastolic [ ] Other diagnosis,please specify: [ ] Unable to determine Physician Signature: Date/Time: For continuity of documentation, please document condition throughout progress notes and discharge summary. Thank You. To be completed by CDI/Coding staff for physician review: Present Clinical Indicators - Signs / Symptoms / Labs Results and Location in Medical Record [X] BP 126/77, Pulse 61, Resp 19, Temp 97.9 Vital signs 11/16 [X] BNP 1090.2, Troponin 0.022, 0.017 [X] Echocardiogram: EF estimated 55-60% Cardiac Procedure Dr Ardon 11/17 [X] Pleural Effusion H&P p5 Tati [employer]ESSIONAL-C 11/16 [X] CHF Exacerbation H&P p5 Tati [employer]-C 11/16 [X] Chest Xray: Cardiomegaly with small left pleural effusion Chest Xray 11/20 [X] Respiratory: Diminished in bases PN 11/17 Dr. Rodriguez [X] Extremities: 1+ LE edema PN 11/17 Dr. Rodriguez Present Risk Factors Results and Location in Medical Record [X] 84 year-old Female H&P p1 Tati [employer]ESSIONAL-C 11/16 [X] HTN H&P p1 Tati [employer]AL-C 11/16 [X] AFib H&P p1 Tati [employer]-C 11/16 [X] HLD H&P p1 Tati [employer]AL-C 11/16 [X] s/p Pacemaker H&P p1 Tati [employer]-C 11/16 [X] CKD H&P p1 Tati [employer]-C 11/16 [X] Mitral/tricuspid regurgitation Consult 11/17 [X] Aortic stenosis Consult 11/17 [X] Hypercholesterolemia Consult 11/17 Present Treatments Results and Location in Medical Record [X] IV Lasix 40 mg MAR 11/16 [X] Eliquis 104 mg oral MAR 11/16 [X] Lipitor 10 mg oral MAR 11/16 [X] Echocardiogram Cardiac Procedure Dr Ardon 11/17 [X] Stress test Nuclear Medicine Cardiac Procedure Dr Montoya 11/17 [X] Cardiology Consult Consult Filippo Christensen 11/17 [X] Chest Xray Collected 11/16 CDS/Hairspring Cutter Signature: Jess Eugene Ronaldopriscilajose f Phone #: [phone] Date/Time: 11/21/2019 0623 This is a permanent part of the Medical Record [facility]
== END 2019-11-19 19:20 | disposition home or self-care (01) | DRG 291 ==
LOC: ERS 13:34 → 2NO 17:10
PROVIDERS: ADMIT Internal Medicine; ATTEND Internal Medicine
DX: I13.0 Hypertensive heart and chronic kidney disease with heart failure and stage 1 through stage 4 chronic kidney disease, or unspecified chronic kidney disease (principal); I50.33 Acute on chronic diastolic (congestive) heart failure; N17.9 Acute kidney failure, unspecified; I48.4 Atypical atrial flutter; Z20.828 Contact with and (suspected) exposure to other viral communicable diseases; N18.9 Chronic kidney disease, unspecified; E78.5 Hyperlipidemia, unspecified; K21.9 Gastro-esophageal reflux disease without esophagitis; F32.9 Major depressive disorder, single episode, unspecified; Z96.641 Presence of right artificial hip joint; R50.9 Fever, unspecified; E78.00 Pure hypercholesterolemia, unspecified; M19.90 Unspecified osteoarthritis, unspecified site; I48.0 Paroxysmal atrial fibrillation; I08.1 Rheumatic disorders of both mitral and tricuspid valves; R91.8 Other nonspecific abnormal finding of lung field; I49.5 Sick sinus syndrome; E87.6 Hypokalemia; Z95.0 Presence of cardiac pacemaker; Z98.42 Cataract extraction status, left eye; Z98.41 Cataract extraction status, right eye; Z79.899 Other long term (current) drug therapy; Z79.01 Long term (current) use of anticoagulants; Z91.041 Radiographic dye allergy status; Z86.73 Personal history of transient ischemic attack (TIA), and cerebral infarction without residual deficits; Z88.5 Allergy status to narcotic agent; Z90.49 Acquired absence of other specified parts of digestive tract; Z98.51 Tubal ligation status
CPT/HCPCS: 36415; 71045; 78452; 80048; 80053; 80061; 81003; 82550; 83690; 83735; 83880; 84443; 84484; 85025; 87635; 87804; 93005; 93010; 93017; 93306; 96374; 97139; A9500; J0153; J1650; J1940; J3480; J7050; U0003

== ENCOUNTER 2019-12-10 07:37 | Outpatient (CLI) | payer MEDICARE, BC, OTHER ==
[2019-12-10 13:30] LABS: Mean Corpuscular HGB CONC 30.9 G/DL (32.0-36.0); Mean Corpuscular Hemoglobin 30.6 PG (27.0-33.0); Mean Corpuscular Volume 98.9 fl (80.0-100.0); Mean Platelet Volume 11.2 fl (7.4-10.4); Platelet Count 220 10x3/uL (130-400); RBC Distribution Width 14.4 % (11.5-14.5); White Blood Cell (WBC) Count 5.7 10x3/uL (4.5-11.0)
[2019-12-10 13:46] LABS: INR-International Normal Ratio 1.1; PTT 29.1 sec (22.0-33.0); Prothrombin Time 11.5 sec (9.5-12.1)
[2019-12-10 14:48] LABS: Anion Gap 16 mmol/L (10-20); BUN (Urea Nitrogen) 26 mg/dL (9.8-20.1); Calc. Creatinine Clearance 0 mL/min (70-130); Calcium 8.9 mg/dL (7.8-10.44); Carbon Dioxide 30 mmol/L (23-31); Chloride 100 mmol/L (98-107); Estimated GFR-MDRD 27; Glucose 85 mg/dL (83-110); Potassium 3.5 mmol/L (3.5-5.1); Sodium 142 mmol/L (136-145)
[2019-12-10 20:25] LABS: SARS-CoV-2 MS2 Positive; SARS-CoV-2 N Gene Negative; SARS-CoV-2 S Gene Negative; SARS-CoV-2 by NAA Not Detected (NotDetected); SARS-CoV-2 orf1ab Negative
== END 2019-12-10 07:38 | disposition home or self-care (01) ==
LOC: LABBT 07:37
PROVIDERS: ATTEND Internal Medicine Cardiovascular Disease
DX: Z01.818 Encounter for other preprocedural examination (principal); Z20.828 Contact with and (suspected) exposure to other viral communicable diseases; I48.91 Unspecified atrial fibrillation
CPT/HCPCS: 80048; 85027; 85610; 85730; 93005; U0003; 87635; 93010

== ENCOUNTER 2019-12-15 05:59 | Day surgery (SDC) | payer MEDICARE, BC ==
[2019-12-11 15:13] VITALS: BMI 26.6
[2019-12-15] MEDS ORDERED: Lidocaine 1% (PF) 30 ML VIAL ONE (06:38)
[2019-12-15] MEDS ORDERED: Fentanyl 100 MCG/2 ML VIAL ONE (06:41)
[2019-12-15] MEDS ORDERED: Midazolam HCl 2 mg/2 ml Vial ONE (07:18)
[2019-12-15] MEDS ORDERED: Propofol 500 MG/50 ML VIAL ONE (07:18)
[2019-12-15] MEDS ORDERED: Heparin 10,000 UNITS/ 10 ML VIAL ONE (09:13)
[2019-12-15] MEDS ORDERED: Gentamicin 80 MG/2 ML VIAL ONE (09:14)
[2019-12-15] MEDS ORDERED: CEFAZOLIN 1 GM VIAL ONE (09:14)
--- NOTE | 2019-12-15 13:45 | OP ---
DATE OF PROCEDURE: 12/15/2019 PROCEDURE PERFORMED: Electrophysiology study. REASON FOR PROCEDURE: Ms. Saldana is an 84-year-old woman with history of paroxysmal atrial fibrillation, now suboptimally suppressed with amiodarone, which therefore was stopped. She also has very high-grade RV pacing and progressive diastolic heart failure. She is here for a planned left bundle pacing pacemaker upgrade and also EP study performed to delineate the His bundle and assess atrial arrhythmias inducible. DESCRIPTION OF PROCEDURE: The patient received deep sedation by Anesthesia specialist. After level of adequate sedation achieved, the right femoral venous area was prepped, draped, and anesthetized using subcutaneous lidocaine. Under ultrasound guidance, the right femoral vein was cannulated x1. An 8-Norwegian short sheath was introduced, through which a DecaNav pacing and mapping catheter was advanced to the right atrium. The right atrium, the left subclavian, the His bundle, and CS os were clearly delineated. The following findings were noted. Baseline rhythm was sinus rhythm, rate of 60 beats per minute, was paced. The OH was 358 milliseconds, QRS 73 milliseconds, conduction, QT is 395 milliseconds, AH 279 milliseconds, HV 74 milliseconds. The AV Wenckebach cycle length was measured at 780 milliseconds. Retrograde Wenckebach cycle length was not noted due to VA block. Burst atrial pacing in atrium did not reinduce arrhythmias, although it was difficult to achieve capture at high frequency burst pacing. At the end of the case, the DecaNav catheter was positioned in His bundle and was used to locate the appropriate position for left bundle pacing during the pacemaker implantation. Procedure, please see separate report. After the case was completed, the catheter in the right femoral vein was removed and Vascade closure was performed to obtain hemostasis. CONCLUSION: 1. Abnormal AV russell and His-Purkinje function. 2. Severe sinus node disease with atrial pacing dependency. 3. No VA conduction. 4. No evidence of accessory pathway. 5. No inducible arrhythmias. PLAN: At this point, no indication for AV russell ablation is present, although with amiodarone washout, if rapid atrioventricular conduction is seen, AV russell ablation could be re-considered, proceed with a BiV-LBB pacing upgrade. Job ID: [id number] [facility]
--- NOTE | 2019-12-15 13:54 | RAD ---
PORTABLE CHEST: Date: 12/15/2019 COMPARISON: 11/17/2019 study. HISTORY: Post pacemaker placement. FINDINGS: Heart size is enlarged. A transvenous pacemaker is present. I do not see any signs of pneumothorax. IMPRESSION: Cardiomegaly. No signs of pneumothorax. POS: ANTONY
--- NOTE | 2019-12-15 21:08 | EKG ---
Test Reason : POST PACEMAKER INSE Blood Pressure : / mmHG Vent. Rate : 070 BPM Atrial Rate : 070 BPM P-R Int : 132 ms QRS Dur : 146 ms QT Int : 494 ms P-R-T Axes : -13 074 -77 degrees QTc Int : 533 ms AV sequential or dual chamber electronic pacemaker When compared with ECG of 10-DEC-2019 12:16, (Unconfirmed) No significant change was found Confirmed by Myrtle MENDOZA ([id number]) on 12/15/2019 9:08:24 PM Referred By: [facility] Confirmed By:Myrtle MENDOZA
== END 2019-12-15 15:24 | disposition home or self-care (01) ==
LOC: CCL 05:59
PROVIDERS: ATTEND Internal Medicine Cardiovascular Disease
PROC: 4A023FZ Measurement of Cardiac Rhythm, Percutaneous Approach (ICD-10-PCS; principal; 2019-12-15)
PROC: 4A0234Z Measurement of Cardiac Electrical Activity, Percutaneous Approach (ICD-10-PCS; 2019-12-15)
PROC: 02583ZZ Destruction of Conduction Mechanism, Percutaneous Approach (ICD-10-PCS; 2019-12-15)
PROC: 02K83ZZ Map Conduction Mechanism, Percutaneous Approach (ICD-10-PCS; 2019-12-15)
PROC: 0JH608Z Insertion of Defibrillator Generator into Chest Subcutaneous Tissue and Fascia, Open Approach (ICD-10-PCS; 2019-12-15)
PROC: 02H63KZ Insertion of Defibrillator Lead into Right Atrium, Percutaneous Approach (ICD-10-PCS; 2019-12-15)
PROC: 02HK3KZ Insertion of Defibrillator Lead into Right Ventricle, Percutaneous Approach (ICD-10-PCS; 2019-12-15)
DX: I48.0 Paroxysmal atrial fibrillation (principal); I11.0 Hypertensive heart disease with heart failure; I50.32 Chronic diastolic (congestive) heart failure; F32.9 Major depressive disorder, single episode, unspecified; M19.90 Unspecified osteoarthritis, unspecified site; Z79.01 Long term (current) use of anticoagulants; Z79.899 Other long term (current) drug therapy; Z88.5 Allergy status to narcotic agent; Z91.041 Radiographic dye allergy status; Z91.048 Other nonmedicinal substance allergy status; Z95.0 Presence of cardiac pacemaker
CPT/HCPCS: 33224; 33228; 36005; 71045; 75820; 76942; 93005; 93010; 93306; C1732; C1882; C1898; J0690; J1580; J1644; J2001; J2250; J2704; J3010

== ENCOUNTER 2019-12-19 09:15 | Outpatient (CLI) | payer MEDICARE, BC ==
--- NOTE | 2019-12-19 11:44 | RAD ---
PA AND LATERAL CHEST: Date: 12/19/2019 HISTORY: Pacemaker insertion 4 days ago, having shortness of breath. COMPARISON: 12/15/2019 exam. FINDINGS: Heart size is enlarged. Pacemaker is in place. Left-sided pleural changes are felt to be similar to t he previous exam. No pneumothorax identified. Some blunting to the right costophrenic angle. Mild vas cular prominence, but no overt edema. IMPRESSION: Essentially stable exam. No signs of pneumothorax. POS: [facility]
== END 2019-12-19 09:16 | disposition home or self-care (01) ==
LOC: BICRAD 09:15
PROVIDERS: ATTEND Internal Medicine Critical Care Medicine
DX: R06.00 Dyspnea, unspecified (principal)
CPT/HCPCS: 71046

== ENCOUNTER 2021-02-22 10:27 | Outpatient (CLI) | payer MEDICARE, BC | END 2021-02-22 10:28 | disposition home or self-care (01) | LOC: RAD 10:27 | PROVIDERS: ATTEND Internal Medicine Critical Care Medicine | DX: R06.00 Dyspnea, unspecified (principal); J90 Pleural effusion, not elsewhere classified | CPT/HCPCS: 71046 ==

== ENCOUNTER 2021-10-08 10:47 | Emergency (ER) | payer MEDICARE, BC ==
[2021-10-08 12:39] LABS: #Eosinphils 0.1 thou/uL (0.0-0.7); #Lymphocytes 0.8 thou/uL (1.20-3.40); #Monocytes 0.4 thou/uL (0.11-0.59); %Basophils 0.7 % (0.0-1.0); %Eosinophils 1.7 % (0.0-10.0); %Lymphocytes 24.2 % (21.0-51.0); %Monocytes 11.1 % (0.0-10.0); %Neutrophils 62.3 % (42.0-75.0); Mean Corpuscular HGB CONC 34.4 g/dL (32.0-36.0); Mean Corpuscular Volume 95.9 fL (78.0-98.0); Mean Platelet Volume 7.8 fL (7.4-10.4); Platelet Count 200 thou/uL (130-400); Red Blood Cell (RBC) Count 3.94 mill/uL (4.20-5.40); White Blood Cell (WBC) Count 3.2 thou/uL (4.8-10.8)
[2021-10-08 13:05] LABS: ALT (SGPT) 11 U/L (8-55); AST (SGOT) 21 U/L (5-34); Albumin 3.9 g/dL (3.4-4.8); Alkaline Phosphatase 85 U/L (40-110); Anion Gap 14 mmol/L (10-20); BUN (Urea Nitrogen) 20 mg/dL (9.8-20.1); Bilirubin, Total 0.9 mg/dL (0.2-1.2); Calc. Creatinine Clearance 0 mL/min (70-130); Calcium 9.3 mg/dL (7.8-10.44); Carbon Dioxide 29 mmol/L (23-31); Chloride 101 mmol/L (98-107); Estimated GFR 35; Globulin 2.9 g/dL (2.4-3.5); Glucose 94 mg/dL (83-110); Magnesium 2.3 mg/dL (1.6-2.6); Potassium 3.7 mmol/L (3.5-5.1); Protein, Total 6.8 g/dL (5.8-8.1); Sodium 140 mmol/L (136-145)
[2021-10-08 13:24] LABS: Bacteria/HPF None Seen HPF (None Seen); Bilirubin Negative (Negative); Blood, Urine Negative (Negative); Clarity Clear (Clear); Glucose, Urine (Dipstick) Normal (Negative); Ketone, Urine Negative (Negative); Leukocyte Negative Leu/uL (Negative); Nitrite Negative (Negative); Protein, Urine (Dipstick) Negative (Neg-Trace); RBC/HPF None Seen HPF (0-3); Specific Gravity, Urine 1.005 (1.002-1.036); Squamous Epithelial 0-3 HPF (0-3); Urobilinogen Normal mg/dL (Less than 2); WBC/HPF 0-3 HPF (0-3)
== END 2021-10-08 16:43 | disposition home or self-care (01) ==
LOC: ERS 10:47
DX: R53.1 Weakness (principal); I48.91 Unspecified atrial fibrillation; E78.5 Hyperlipidemia, unspecified; I10 Essential (primary) hypertension; Z79.899 Other long term (current) drug therapy; Z79.01 Long term (current) use of anticoagulants
CPT/HCPCS: 70450; 71045; 80053; 81001; 83735; 84484; 85025; 93005; 96360